=== PATIENT | male | born 1960 | race Caucasian/White ===

== ENCOUNTER 2019-09-19 13:29 | Inpatient (IN) | payer OTHER, SELFPAY ==
[2019-09-19] VITALS (26 sets, daily range): BP systolic 102–161; BP diastolic 67–109; PULSE 61–203; RESP 12–29; TEMP 36–36.4; O2SAT 95–100; BMI 37.3; BMI 38.9
--- NOTE | 2019-09-19 13:35 | NURSING ---
NO OLD EKGS
--- NOTE | 2019-09-19 13:50 | EKG12_ITS ---
Test Reason : SVT Blood Pressure : / mmHG Vent. Rate : 203 BPM Atrial Rate : 202 BPM P-R Int : 000 ms QRS Dur : 082 ms QT Int : 216 ms P-R-T Axes : 000 039 007 degrees QTc Int : 397 ms Supraventricular tachycardia Nonspecific ST and T wave abnormality Abnormal ECG Confirmed by NINA MACIAS, PUSHPA ([id number]), associate editor SHERLEY PABON ([id number]) on 09/23/2019 12:29:31 PM Referred By: DAVINA Confirmed By:PUSHPA WOOD MD
--- NOTE | 2019-09-19 13:51 | EKG12_ITS ---
Test Reason : SVT Blood Pressure : / mmHG Vent. Rate : 090 BPM Atrial Rate : 090 BPM P-R Int : 146 ms QRS Dur : 096 ms QT Int : 316 ms P-R-T Axes : 076 046 047 degrees QTc Int : 386 ms Sinus rhythm with Premature atrial complexes Biatrial enlargement Cannot rule out Inferior infarct , age undetermined Abnormal ECG Confirmed by NINA MACIAS, PUSHPA ([id number]), writer editor SHERLEY PABON ([id number]) on 09/23/2019 12:29:50 PM Referred By: DAVINA Confirmed By:PUSHPA WOOD MD
[2019-09-19] MEDS: Ipratropium/Albuterol Sulfate 3 ML AMPUL.NEB INHALATION (14:02)
[2019-09-19 14:06] LABS: Absolute Lymphocyte Count 5.52 X10^3/uL (0.83-4.51); Basophil# 0.07 X10^3/uL; Basophil% 0.4 % (0-1); Eosinophil# 0.05 X10^3/uL; Eosinophils% 0.3 % (0-5); Hematocrit 52.7 % (40-54); Hemoglobin 16.7 g/dL (13.0-16.5); Lymphocyte # 5.52 X10^3/ul (4.0); Mean Corp Hgb Conc 31.7 g/dL (32-36); Mean Corpuscular Hgb 29.4 pg (27.0-32.0); Mean Corpuscular Volume 92.8 fL (80-94); Mean Platelet Vol. 10.3 fl (6.2-12.0); Monocyte# 1.55 X10^3/uL; Monocyte% 9.5 % (0-10); NRBC Flagged by Analyzer 0 % (0-5); Neutrophil # 8.96 X10^3/uL (2.7-7.7); Neutrophil % 55.2 % (47-70); POSITIVE DIFFERENTIAL YES; Platelet Count 301 K/mm3 (150-450); RBC Distribution Width CV 13.2 % (11.6-14.6); RBC Distribution Width SD 44.6 fl (35.1-43.9); Red Blood Count 5.68 M/mm3 (4.6-6.2); White Blood Count 16.2 K/mm3 (4.4-11.0)
[2019-09-19 14:11] LABS: Differential Indicated SCAN CRITERIA MET
--- NOTE | 2019-09-19 14:13 | RAD_ITS ---
STUDY: X-RAY CHEST REASON FOR EXAM: Male, 59 years old. PALPITATIONS, COUGH TECHNIQUE: PA and lateral chest. COMPARISON: None. FINDINGS: There is a 1.3 cm nodule in the right lung base. There is a calcified granuloma in the right upper lobe. The lungs are otherwise clear. There is no demonstrated pleural abnormality. Normal size heart. Normal mediastinum and kaya. Normal visualized pulmonary arteries. Normal visualized aortic arch and descending thoracic aorta. Normal visualized thoracic spine. Normal visualized ribs, clavicles, and shoulders. There is no demonstrated abnormality of the visualized soft tissue structures of the upper abdomen. RAD/Chest PA and Lateral IMPRESSION: 1. No acute findings. 2. A 1.3 cm nodular density projected over the right lower lobe. Possible pulmonary nodule versus nipple shadow. Options for further evaluation include repeat PA view with nipple markers or CT of the chest. 3. Old granulomatous disease. Electronically Signed: Tamar Luna MD at 16:17 EST Tel , Service support ,
[2019-09-19 14:23] LABS: ALB/GLOB Ratio 0.9 RATIO (0.9-2.4); AST(SGOT) 55 U/L (15-37); Alanine Aminotransfer ALT/SGPT 135 U/L (16-61); Albumin, Serum 3.6 g/dL (3.2-5.0); Alkaline Phosphatase 99 U/L (45-117); Anion Gap 8 (5-15); BUN 18 mg/dL (7-18); BUN/Creat Ratio 14.6 RATIO (10-20); Calcium,Total 8.6 mg/dL (8.5-10.1); Chloride 101 mmol/L (98-107); Creatinine, Serum 1.23 mg/dL (0.70-1.30); EST Glomerular Filtration Rate 64 mL/min (>60); Est Glom Filt Rate - Afr Amer 78 mL/min (>60); Estimated Creatinine Clearance 72.73 ml/min; Globulin 4.1 g/dL (2.2-4.2); Glucose 106 mg/dL (74-106); Magnesium 2.5 mg/dL (1.6-2.6); Potassium 3.5 mmol/L (3.5-5.1); Protein, Total 7.7 g/dL (6.4-8.2); Sodium Level 137 mmol/L (136-145)
[2019-09-19 14:39] LABS: Differential Comment SCANNED; Reactive Lymphocyte 1+
[2019-09-19] MEDS: Adenosine 6 MG/2 ML Syringe IV (14:39)
--- NOTE | 2019-09-19 14:40 | ED.RN ---
PATIENT GIVEN 6 OF ADENOSINE. NO RESULTS. PATIENT REMAINS IN SVT. HEART RATE IN THE 200'S. [id number] PATIENT GIVEN 12 OF ADENOSINE. PATIENT NOW IN SINUS RHYTHM. WILL CONTINUE TO MONITOR.
[2019-09-19] MEDS: Adenosine 6 MG/2 ML Syringe 12 MG IV ×3 (14:42→18:06)
--- NOTE | 2019-09-19 14:47 | ED.RN ---
PATIENT BACK IN SVT WITH HEART RATE IN THE LOW 200'S. DR. GHOSH AWARE. WILL CONTINUE TO MONITOR.
[2019-09-19] MEDS: Metoprolol Tartrate 5 MG/5 ML Vial IV ×2 (15:07→16:15)
[2019-09-19] MEDS: Ceftriaxone 1 GM/50 ML BAG IV (15:28)
[2019-09-19] MEDS: Metoprolol(XL)Succ 25 MG Tablet PO (15:28)
[2019-09-19 15:43] LABS: Lactic Acid 1.7 mmol/L (0.4-1.9)
--- NOTE | 2019-09-19 16:04 | PCM.HP.STD ---
Problem List (1) SVT (supraventricular tachycardia) Status: Acute (2) Pneumonia Status: Acute Qualifiers: Pneumonia type: due to unspecified organism Laterality: right Lung location: lower lobe of lung Qualified Code(s): J18.9 - Pneumonia, unspecified organism (3) GERD (gastroesophageal reflux disease) Status: Chronic Qualifiers: Esophagitis presence: esophagitis presence not specified Qualified Code(s): K21.9 - Gastro-esophageal reflux disease without esophagitis (4) Obesity (BMI 30-39.9) Status: Chronic History of Present Illness Date of Admission: 09/19/19 Chief Complaint: Palpitations, dyspnea, cough The patient is a 59 y/o M w/ PMHx: GERD, Chronic palpitations for years usually resolving with breath-holding alternate methods but short-lived and primarily asymptomatic, Obesity w/ recent one-week history of ongoing productive cough, dyspnea, worse with exertion with no fevers but noted chills, not improving prompting him to present to urgent care where he was noted to have a heart rate in the 200s with referral to the ED for emergent evaluation with ED initial evaluation consistent with SVT which spontaneously converted initially. Patient had prolonged ED stay requiring several doses of adenosine, metoprolol without market benefit with eventual transition to amiodarone bolus and drip per discussion with cardiology. During the entirety of patient's admission in the emergency room he denied significant symptoms from his ongoing SVT, only a fluttering but no chest pain, chest pressure, headedness or dizziness or worsened dyspnea. Work-up in the ED included CBC w/ WBC 16.2, Hgb 16.7, Plt 301 with L shift, CMP w/ T Bili 1.40, AST/ALT 55/135, trop < 0.015, Bld Cx x 2, CXR w/ developing RLL PNA, Bld Cx x 2. In the ED patient administered serial rounds adenosine, metoprolol, azithromycin, rocephin, albuterol and duoneb therapies with eventual amiodarone bolus and drip ordered. Of note, prior to transition to the ICU, patient w/ episode hypotension w/ SBP in the 70s prior to the amiodarone with repeat BP 92/70, ordered 1L NS prior to ICU transition. Dr. Pelayo consulted and following patient. Past Medical History Past Medical History (Chronic Problems): Chronic Problems GERD (gastroesophageal reflux disease) (Chronic) Obesity (BMI 30-39.9) (Chronic) Allergies No Known Allergies Allergy (Verified 09/19/19 13:59) Home Medications: Ambulatory Orders Medication Instructions Recorded Gluc Spring/Chondro Spring A/Vit C/Mn 1 cap PO DAILY 09/19/19 [Glucosamine-Chondroitin Cap] Omeprazole Magnesium [Prilosec Otc] 20 mg PO DAILY 09/19/19 Turmeric Root Extract [Turmeric 500 mg PO DAILY 09/19/19 Curcumin] Surgical History: - - Umbilical hernia repair, tonsillectomy. Psychiatric History: No pertinent psych hx Lives: Spouse/ Significant Other Smoking Status: Never smoker Tobacco Use: Non-smoker Alcohol: Occasional Drugs: None - *Family History Maternal History Items: - - Mother with history of heart disease, CHF. Paternal History Items: - - Father with history of prostate cancer. Review of Systems Constitutional: Reports: Anorexia, Chills, Malaise, Weakness, Fatigue. Denies: Fever, Weight Change HEENT: Denies: Head Aches, Sinus Congestion, Sinus Drainage Cardiovascular: Reports: Palpitations. Denies: Chest Pain, Chest Pressure, Chest Tightness, Heaviness, Light Headedness, Syncope Respiratory: Reports: Cough, Shortness of Breath, Shortness of breath at rest, Shortness of breath upon exertion, Sputum production Gastrointestinal: Reports: Nausea. Denies: Abdominal Pain, Vomiting Genitourinary: Denies: Dysuria Musculoskeletal: Reports: Joint Pain. Denies: Joint Tenderness Skin: Denies: Rash, Wounds Neurological: Denies: Numbness, Tingling, Focal weakness Psychiatric: Denies: Anxiety, Depression, Homicidal Ideations, Suicidal Ideations Hematologic/ Lymphatic: Denies: Easy Bruising, Easy Bleeding VTE Information - Inpt Only VTE Present on Admission: No VTE Mechan Device Prophylaxis: SCD's VTE Pharm Prophylaxis ordered?: Yes Patient Problems: Active and Suspected Problems SVT (supraventricular tachycardia) (Acute) Pneumonia (Acute) Subjective: Seated upright in the ED bed, no acute distress, denies any chest discomfort, ongoing heart rate in the 170s. Objective: Physical Examination: General: awake, alert, oriented x 3 and cooperative, seated upright in the ED bed, no acute distress. Skin: normal color, turgor, no icterus, cyanosis. HEENT: AT/NC, EOMI, PERRLA, dry MM, no carotid bruits or JVD noted. Lungs: Diminished breath sounds bilaterally, greater bilateral bases, right greater than left, mild rhonchi, no wheezing or rales. Heart: Irregular irregular; no gallop, rub audible. Abdomen: soft, obese, NTTP, ND, normal BS, no HSM; however, habitus makes examination difficult. Extremities: no cyanosis, clubbing, or edema. Neurological: patient awake, alert, oriented x 3; cognitive function intact; pupils equally reactive to light and accomodation; cranial nerves II-XII grossly normal, moving all 4 extremities, no focal deficits, strength moderately global decrease secondary to acute presentation. Psychiatric: affect appears fatigued, no acute evidence of depressive or anxiety feelings. - Physical Exam Vitals/I&O's: Vital Signs Temp Pulse Resp BP Pulse Ox 97 F L 183 H 18 110/88 H 97 09/19/19 13:29 09/19/19 16:00 09/19/19 16:00 09/19/19 16:00 09/19/19 16:00 Oxygen Delivery Method Room Air Weight: 275 lb Body Mass Index (BMI) 37.3 Intake and Output for Last 24 Hours 09/17/19 09/18/19 09/19/19 23:59 23:59 23:59 Intake Total 50 / 50 Balance 50 / 50 Laboratory Results 09/19/19 13:51: WBC 16.2 H, RBC 5.68, Hgb 16.7 H, Hct 52.7, MCV 92.8, MCH 29.4, MCHC 31.7 L, RDW Std Deviation 44.6 H, RDW Coeff of Kristen 13.2, Plt Count 301, MPV 10.3, Immature Gran % (Auto) 0.600, Neut % (Auto) 55.2, Lymph % (Auto) 34.0, [place] % (Auto) 9.5, Eos % (Auto) 0.3, Baso % (Auto) 0.4, Absolute Neuts (auto) 9.0 H, Absolute Lymphs (auto) 5.52 H, Nucleated RBC % 0, Differential Comment SCANNED, Diff Path Review May foll, Reactive Lymphocytes 1+ 09/19/19 13:51: Sodium 137, Potassium 3.5, Chloride 101, Carbon Dioxide 28.0, Anion Gap 8, BUN 18, Creatinine 1.23, Estim Creat Clear Calc 72.73, Est GFR (MDRD) Af Amer 78, Est GFR (MDRD) Non-Af 64, BUN/Creatinine Ratio 14.6, Glucose 106, Calcium 8.6, Magnesium 2.5, Total Bilirubin 1.40 H, AST 55 H, ALT 135 H, Alkaline Phosphatase 99, Troponin I < 0.015, Total Protein 7.7, Albumin 3.6, Globulin 4.1, Albumin/Globulin Ratio 0.9 09/19/19 15:06: Lactic Acid 1.7 Assessment/Plan All Active Problems SVT (supraventricular tachycardia) (Acute) Pneumonia (Acute) The patient is a 59 y/o M w/ PMHx: GERD, Chronic palpitations for years usually resolving with breath-holding alternate methods but short-lived and primarily asymptomatic, Obesity w/ recent one-week history of ongoing productive cough, dyspnea, worse with exertion with no fevers but noted chills, not improving prompting him to present to urgent care where he was noted to have a heart rate in the 200s with referral to the ED for emergent evaluation with ED initial evaluation consistent with SVT which spontaneously converted initially. 1. Persistent SVT: Likely secondary to #2, prior history frequent palpitations, usually limited, will admit to the ICU, maintain on recently initiated amiodarone bolus and drip, Cardiology consulted and following, obtain ECHO, obtain mag, obtain TSH, continue treatment as noted #2. 2. Community Acquired Pneumonia: Acute presentation contributing to #1. Will maintain on oxygen with wean as tolerated to room air, PRN albuterol, defer scheduled DuoNeb therapies given current heart rate, maintain on IV Rocephin and Azithromycin, HOB, IS parameters w/ pending sputum cultures, respiratory viral panel and urine antigens. Bld cx x 2 obtained in the ED. 3. Elevated LFTs: Unclear specific etiology but from discussions suspect patient may have heavy weekend drinking, will obtain hepatitis panel, obtain liver ultrasound, repeat CMP in a.m. 4. Obesity: Weight loss and lifestyle changes encouraged, nutrition consulted. 5. GERD: Maintained on famotidine. 6. DVT prophylaxis: SCDs, Lovenox. Code Visit Inpatient E&M: [id number] Init Hosp L3
--- NOTE | 2019-09-19 16:56 | NURSING ---
[id number] WHITE SVT, PNA
--- NOTE | 2019-09-19 17:02 | NURSING ---
MED SURG OBS PESCI BRONCHIOLITIS
--- NOTE | 2019-09-19 17:09 | ED.DCSUM_ITS ---
History of Present Illness Chief Complaint: Palpitations Informant: Patient, Family Narrative: For the past week the patient states he has had a cough and congestion. But he has been experiencing racing heart. States symptoms usually are being felt in his throat and states that [place] of the barn yesterday he was very dyspneic and sweaty. He has had problems with a sensation that his heart is been racing in the past with been very short-lived he went saw his doctor Once upon a time for it was told it was anxiety and nothing more was worked up. Past Medical History - Allergies and Home Meds Allergies/Adverse Reactions: Allergies No Known Allergies Allergy (Verified 09/19/19 13:59) Smoking Status: Former smoker Review of Systems General: Reports: Malaise. Denies: Chills, Fever, Sweats Eyes: Denies: Visual changes - bilaterally, Diplopia ENT: Denies: Rhinorrhea, Sore throat Cardiovascular: Reports: Heart racing. Denies: Chest pain, Palpitations Respiratory: Reports: Dyspnea, Cough. Denies: Dyspnea on exertion Gastrointestinal: Denies: Abdominal pain, Nausea, Vomiting, Diarrhea, Melena, Hematochezia Genitourinary: Denies: Dysuria, Hematuria, Frequency Musculoskeletal: Denies: Back pain, Extremity Pain Skin: Reports: - - Diaphoresis. Denies: Rash, Wounds Neurological: Denies: Headache, Weakness, Numbness Physical Exam Vital Signs/Narrative: Vital Signs Temp Pulse Resp BP Pulse Ox 09/19/19 16:00 183 H 18 110/88 H 97 09/19/19 15:30 181 H 16 105/82 H 97 09/19/19 14:53 199 H 18 161/109 H 96 09/19/19 14:03 85 12 09/19/19 13:39 82 18 151/108 H 99 09/19/19 13:30 202 H 18 99 09/19/19 13:29 97 F L 203 H 24 H 143/108 H 96 Inital Vital Signs reviewed: Yes General: Well nourished, Well developed, No Acute Distress Head: Normocephalic, Atraumatic Eyes: Perrl, EOMI ENT: Moist mucous membranes, No rhinorrhea Neck: Supple, Nontender Cardiovascular: Regular rate, No murmurs, Tachycardia Respiratory: No distress, Chest nontender, Rhonchi, Wheezing Abdomen: Soft, Nontender, Nondistended, Normal bowel sounds Back: Nontender, Normal Inspection Extremities: Nontender, No edema Skin: Normal color, No rash Neurological: Alert, Oriented x3, Cranial nerves II-XII grossly intact, Normal Strength, Normal Sensation Psychological: Normal affect, Normal Mood Diagnostic/Tx/Re-eval - EKG Initial EKG Interpretation: SVT - Supraventricular tachycardia with a rate of 203 Follow-up EKG Interpretation: Sinus Rhythm - Sinus rhythm with biatrial enlargement at a rate of 90. - Medical Decision Making Basic labs showed a white count of 16. Concerned about a possible developing infiltrate in the right lower lobe. Otherwise his electrolytes and troponin look okay. Patient self converted prior to my examination. However he went back into SVT and received 6 and then 12 mg of adenosine. This temporarily broke his SVT but about 1 to 2 minutes later he went back into it. I spoke with Dr. Pelayo is on-call for cardiology. He recommended a trial of beta- sheyla. He was given both oral and IV beta-sheyla with heart rates decreasing to the 170 and 180 range. After a period of time adenosine was tried again with the break to sinus rhythm only lasting a couple seconds. I again spoke with Dr. Pelayo and we will start him on amiodarone bolus and infusion. Plan is admission into the ICU. Prior to him leaving the department and getting the amiodarone the patient became hypotensive. He is going to be receiving a fluid bolus. - Critical Care Time Critical care time (excluding procedures): 30-74 minutes - 35 min ED Disposition - Plan for ED Patient: Disposition: Acute Care Hospital [facility] Diagnosis: SVT (supraventricular tachycardia), Pneumonia
[2019-09-19] MEDS: 0.9% Normal Saline 1,000 ML 999 ML IV (17:21)
--- NOTE | 2019-09-19 17:39 | ECHOCS_ITS ---
Reason For Study: Arrhythmia Procedure This was a 2D Doppler, Color Flow transthoracic echocardiogram. The study was technically difficult. Contrast injection was performed. Exam performed portable in ICU/CCU. Left Ventricle Normal LV size. Left ventricular systolic function is normal. The estimated ejection fraction is 55 %. No evidence for diastolic dysfunction. No regional wall motion abnormalities noted. Right Ventricle Normal RV size. Normal systolic function. Atria The left atrium is moderately enlarged. The right atrium is mildly enlarged. No doppler evidence for ASD. Mitral Valve There is no mitral annular calcification. Normal mitral valve. Moderate (2+) mitral valve insufficiency. Tricuspid Valve Normal tricuspid valve. Mild to moderate (1-2+) tricuspid valve insufficiency. Right ventricular systolic pressure estimated to be 30 mmHg. Aortic Valve Trisinus/trileaflet aortic valve. Normal aortic valve. Pulmonic Valve The pulmonic valve is not well visualized. Trivial pulmonic valve insufficiency. Great Vessels Normal sized aortic root. Pericardium/Pleural No pericardial effusion. Medication Diluted definity 4ml given slow IV push to enhance endocardial definition. MMode/2D Measurements & Calculations LVIDd: 4.3 cm IVSd: 1.2 cm Ao root diam: 3.1 cm LVIDs: 3.5 cm LVPWd: 1.2 cm RVDd: 3.5 cm FS: 18.5 % LAV(MOD-bp): 76.0 ml LA A4 area: 23.9 cm2 LA dimension(2D): 4.6 cm LAV(MOD-bp) Indexed: 30.7 ml/m2 LAV(MOD-sp2): 72.7 ml LAV(MOD-sp4): 72.6 ml RA A4 area: 23.4 cm2 Doppler Measurements & Calculations MV E max estevan: 77.2 cm/sec Lat Peak E' [place]: 8.5 cm/sec Med Peak E' [place]: 5.8 cm/sec MV A max estevan: 30.5 cm/sec E/E' lat: 9.1 E/E' med: 13.4 MV E/A: 2.5 Ao V2 max: 117.6 cm/sec LV V1 max: 91.1 cm/sec PA V2 max: 67.8 cm/sec Ao max P.5 mmHg LV V1 max P.3 mmHg TR max estevan: 259.0 cm/sec TR max P.9 mmHg Interpretation Summary The study was technically difficult. Contrast injection was performed. Left ventricular systolic function is normal. The estimated ejection fraction is 55 %. The left atrium is moderately enlarged. The right atrium is mildly enlarged. Moderate (2+) mitral valve insufficiency. Mild to moderate (1-2+) tricuspid valve insufficiency. Trivial pulmonic valve insufficiency. Right ventricular systolic pressure estimated to be 30 mmHg. No evidence for diastolic dysfunction. Ordering Physician: Torie Wiley Performed By: Destiney Asencio RDCS
--- NOTE | 2019-09-19 17:39 | US_ITS ---
STUDY: ABDOMINAL ULTRASOUND - RIGHT UPPER QUADRANT REASON FOR VISIT: Male, 59 years old ELEV LFTS TECHNIQUE: Ultrasound evaluation of the right upper quadrant was performed with real-time and static landon-scale imaging. TECHNICAL QUALITY: Limited. COMPARISON: None. FINDINGS: Liver: The liver measures 21.0 cm. There is increased echogenicity consistent with fatty infiltration. The bile ducts are within normal limits. There is hepatic color flow. The direction of portal flow is hepatopetal. There is no demonstrated mass lesion. Gallbladder: Normal distended gallbladder. The gallbladder wall measures 3 mm. There is a negative sonographic Hanson''s sign. There is no pericholecystic fluid. There are no gallstones. Common Bile Duct (C.B.D.): The common bile duct measures 5 mm. Pancreas: The pancreatic head and tail are poorly visualized. There is normal echogenicity of the pancreas. There is no demonstrated pancreatic mass or cyst. There is mild ductal dilatation measuring up to 3 mm. Right Kidney: Normal size of the right kidney. The right kidney measures 13.7 x 5.9 x 7.0 cm. Normal renal cortex. The right cortex measures 1.3 cm. There is prominence of the right renal pyramids. There is no demonstrated renal mass or cyst. There is no right hydronephrosis. US/Liver IMPRESSION: 1. Mild hepatomegaly. 2. Echogenic liver suggestive of steatosis. 3. The pancreatic head and tail were not well visualized. 4. Prominent right renal periods. Electronically Signed: Naeem Sweeney MD at 21:33 EST , Service support ,
[2019-09-19] MEDS: 0.9% Saline Lock 10 ML Syringe IV (17:52)
[2019-09-19] MEDS: 0.9% Normal Saline 1,000 ML 125 ML IV (18:00)
--- NOTE | 2019-09-19 18:16 | CON.PCM_ITS ---
Problem List (1) SVT (supraventricular tachycardia) Status: Acute (2) Pneumonia Status: Acute Qualifiers: Pneumonia type: due to unspecified organism Laterality: right Lung location: lower lobe of lung Qualified Code(s): J18.9 - Pneumonia, unspecified organism (3) GERD (gastroesophageal reflux disease) Status: Chronic Qualifiers: Esophagitis presence: esophagitis presence not specified Qualified Code(s): K21.9 - Gastro-esophageal reflux disease without esophagitis (4) Obesity (BMI 30-39.9) Status: Chronic Reason for Consult Date of Consultation: 09/19/19 History of Present Illness: The patient is a 59 year old white male who denies any diagnosed past cardiovascular history who is referred for evaluation of PSVT in the setting of concerns of tracheobronchitis/pneumonia superimposed upon history of GERD and obesity. He states for at least 30 years he has been told that sensations that he feels, palpitations/rapid heart rate, have been related to anxiety . He does not recall ever going through any type of cardiovascular diagnostic studies and/or therapeutic intervention. He states he has episodes of his palpitations and rapid heart rate randomly. He usually can tell when they start as he still has a sensation in his neck that then proceeds to his chest and he can actually watch his heartbeat in his chest go fast. He notes these episodes can last anywhere from seconds to minutes and and potentially up to 2 hours in duration. He denies any episodes of syncope. 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 He notes recently he has not felt well. He states that he has had episodes where he has been somewhat diaphoretic. He did not check his temperature. He notes he has had a cough with some sputum production. He also notes his appetite has been down. He presented to the urgent care for further evaluation. He states there were concerns of pneumonia but also on examination of a rapid heart rate. He was referred to the [facility] emergency department. There he was being evaluated for pneumonia and at the same time was found to have what appeared to be PSVT. He was having episodes where his heart rate would spontaneously return to sinus rhythm. However, as his episodes persisted he did receive additional medical therapy with IV adenosine 12 mg x 2 separate occasions. With both of those episodes he had subsequent abrupt termination with evidence of underlying ventricular ectopy/PVCs and then returned to sinus rhythm. However his sinus rhythm did not persist for long and he returned back into a PSVT. He was treated with additional medical therapy with IV Lopressor 5 mg x 2 and oral metoprolol succinate 25 mg p.o. x1. He did not have return to sinus rhythm. He was then placed on additional antiarrhythmic therapy with IV amiodarone. He was then transferred to the ICU for further evaluation and care. Status post his initial IV amiodarone bolus he received an additional adenosine 12 mg x 1 with subsequent spontaneous conversion to sinus rhythm with PVCs and then a return to PSVT at a rate of approximately 150 bpm. His initial troponin I level was negative. His WBC was elevated. His ECG demonstrated supraventricular tachycardia with nonspecific ST/T wave change. His ECG in sinus rhythm demonstrated sinus rhythm with the appearance of biatrial enlargement. There were no other acute ECG changes. He has denied any orthopnea or PND or peripheral pitting edema. He states that he has had no near syncope or syncope. He has had episodes in the past where he has been transiently lightheaded. [] Past Medical History Allergies/Adverse Reactions: Allergies No Known Allergies Allergy (Verified 09/19/19 13:59) Home Medications: Ambulatory Orders Medication Instructions Recorded Gluc Spring/Chondro Spring A/Vit C/Mn 1 cap PO DAILY 09/19/19 [Glucosamine-Chondroitin Cap] Omeprazole Magnesium [Prilosec Otc] 20 mg PO DAILY 09/19/19 Turmeric Root Extract [Turmeric 500 mg PO DAILY 09/19/19 Curcumin] Past Medical History (Chronic Problems): Chronic Problems GERD (gastroesophageal reflux disease) (Chronic) Obesity (BMI 30-39.9) (Chronic) Surgical History: - - Umbilical hernia repair, tonsillectomy. Psychiatric History: No pertinent psych hx - *Family History Maternal History Items: - - Mother with history of heart disease, CHF. Paternal History Items: - - Father with history of prostate cancer. Lives: Spouse/ Significant Other Smoking Status: Never smoker Tobacco Use: Non-smoker Alcohol: Occasional Drugs: None Review of Systems - Review of Systems General: Reports: Decreased Appetite. Denies: Fever, Fatigue, Night Sweats HEENT: Reports: Sore Throat Cardiovascular: Reports: Palpitations, Lightheadedness. Denies: Chest Discomfort, Shortness of Breath, Orthopnea, PND, Peripheral Edema, Dizziness, Near Syncope, Syncope Respiratory: Reports: Cough, Sputum Production. Denies: Hemoptysis Gastrointestinal: Denies: Hematemesis, Hematochezia, Melena Genitourinary: Denies: Dysuria, Hematuria Skin: Denies: Rash Subjectve: This is a 59-year-old obese white male who appears resting comfortably at the moment in no acute distress. Objective: Vital Signs Temp Pulse Resp BP Pulse Ox 97.6 F L 154 H 18 102/81 H 96 09/19/19 17:24 09/19/19 17:26 09/19/19 17:26 09/19/19 17:26 09/19/19 17:26 Oxygen Delivery Method Room Air Weight: 287 lb 11.252 oz Body Mass Index (BMI) 38.9 Intake and Output for Last 24 Hours 09/17/19 09/18/19 09/19/19 23:59 23:59 23:59 Intake Total 408 / 408 Balance 408 / 408 General: Awake, Alert, Oriented x 3, Cooperative, No Acute Distress HEENT: Atraumatic, Normocephalic, PERRL, EOMI, Sclera Non Icteric Oral: Moist Mucosa Neck: Supple, Good ROM, No JVD Lungs: Clear to auscultation Cardiovascular: Regular Rhythm, Normal S1, Normal S2 Vascular: No Carotid Bruits Abdomen: Bowel Sounds Present, Soft, Non Tender Extremities: No Cyanosis, No Clubbing, No edema Neurological: No Focal Motor or Sensory Deficit Psych/Mental Status: Appropriate 09/19/19 13:51: WBC 16.2 H, RBC 5.68, Hgb 16.7 H, Hct 52.7, MCV 92.8, MCH 29.4, MCHC 31.7 L, Plt Count 301, MPV 10.3, Immature Gran % (Auto) 0.600, Neut % (Auto) 55.2, Lymph % (Auto) 34.0, [place] % (Auto) 9.5, Eos % (Auto) 0.3, Baso % ( Auto) 0.4, Absolute Neuts (auto) 9.0 H, Nucleated RBC % 0 09/19/19 13:51: Sodium 137, Potassium 3.5, Chloride 101, Carbon Dioxide 28.0, Anion Gap 8, BUN 18, Creatinine 1.23, Est GFR (MDRD) Af Amer 78, Est GFR (MDRD) Non-Af 64, BUN/Creatinine Ratio 14.6, Glucose 106, Calcium 8.6, Magnesium 2.5, Total Bilirubin 1.40 H, Troponin I < 0.015 09/19/19 15:06: Lactic Acid 1.7 Rhythm: As noted above EKG: As noted above CXR: preliminary evaluation: No acute cardiopulmonary disease process appr eciated; please see official report Assessment/Plan 1. PSVT The patient does appear to have underlying PSVT. He states that his symptoms are similar to symptoms he has had off and on for many years. He notes at times he can tilt his head back, take a deep breath, and break his episodes. 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 It is unclear at the moment whether his episode today is coincidental with his underlying pulmonary disease related issues or potentially being brought out by his pulmonary disease related issues. At the moment he is in the ICU based upon his cardiac dysrhythmia. He is being monitored. His laboratory studies are being evaluated. He is continuing medical therapy. At this time he will be placed on additional rate limiting therapy with IV diltiazem in the hopes of controlling his rate and allowing him a better opportunity to return to sinus rhythm. He is continuing IV amiodarone for the time being. Ideally over time he should be considered for EP evaluation for EPS/RFA. In the interim he will be asked to have further cardiovascular evaluation with a transthoracic echocardiogram to evaluate his atrial size and ventricular size, wall motion, and systolic function. Hopefully this can be performed in sinus rhythm. In the meantime he will also continue his pulmonary evaluation and care. 2. Pneumonia He is being evaluated by internal medicine for concerns of underlying pneumonia. He has received IV antibiotics. 3. GERD He will continue evaluation care per internal medicine as deemed appropriate. 4. Obesity Unfortunately he is overweight/obese. He has been counseled on the need to try and bring his weight under better control. Comment: The patient's case has been discussed and reviewed with the [facility] emergency department staff. This note was generated using a voice recognition system and there may be incorrect words, spelling or punctuation that were not noted when reviewing the office note prior to saving.
[2019-09-19] MEDS: dilTIAZem 25 MG/5 ML Vial 20 MG IV BOLUS (18:42)
[2019-09-19 19:04] LABS: Magnesium 2.5 mg/dL (1.6-2.6); Thyroid Stim Hormone (TSH) 2.49 uIU/mL (0.358-3.74)
[2019-09-19] MEDS: guaiFENesin 1,200 MG Tablet 1200 MG PO (21:10)
[2019-09-20] VITALS (36 sets, daily range): BP systolic 104–172; BP diastolic 75–106; PULSE 49–151; RESP 15–26; TEMP 36.2–36.7; O2SAT 93–966
[2019-09-20] MEDS: 0.9% Normal Saline 1,000 ML 125 ML IV ×2 (01:10→09:42)
[2019-09-20 04:02] LABS: Absolute Lymphocyte Count 3.74 X10^3/uL (0.83-4.51); Basophil# 0.05 X10^3/uL; Basophil% 0.4 % (0-1); Eosinophil# 0.04 X10^3/uL; Eosinophils% 0.3 % (0-5); Hemoglobin 13.6 g/dL (13.0-16.5); Lymphocyte # 3.74 X10^3/ul (4.0); Lymphocyte % 31.4 % (19-41); Mean Corp Hgb Conc 32.4 g/dL (32-36); Mean Corpuscular Hgb 29.9 pg (27.0-32.0); Mean Corpuscular Volume 92.3 fL (80-94); Monocyte# 0.97 X10^3/uL; Monocyte% 8.2 % (0-10); NRBC Flagged by Analyzer 0 % (0-5); Neutrophil # 7.04 X10^3/uL (2.7-7.7); Neutrophil % 59.2 % (47-70); Platelet Count 247 K/mm3 (150-450); RBC Distribution Width CV 13.4 % (11.6-14.6); RBC Distribution Width SD 45.4 fl (35.1-43.9); Red Blood Count 4.55 M/mm3 (4.6-6.2); White Blood Count 11.9 K/mm3 (4.4-11.0)
[2019-09-20 04:32] LABS: ALB/GLOB Ratio 0.9 RATIO (0.9-2.4); AST(SGOT) 45 U/L (15-37); Alanine Aminotransfer ALT/SGPT 119 U/L (16-61); Alkaline Phosphatase 86 U/L (45-117); Anion Gap 4 (5-15); BUN 17 mg/dL (7-18); BUN/Creat Ratio 17.1 RATIO (10-20); Calcium,Total 7.7 mg/dL (8.5-10.1); Chloride 107 mmol/L (98-107); Cholesterol 116 mg/dL (200); EST Glomerular Filtration Rate 82 mL/min (>60); Est Glom Filt Rate - Afr Amer 99 mL/min (>60); Estimated Creatinine Clearance 89.46 ml/min; Globulin 3.2 g/dL (2.2-4.2); Glucose 92 mg/dL (74-106); High Density Lipoprotein 30 mg/dL; Potassium 4.1 mmol/L (3.5-5.1); Protein, Total 6.2 g/dL (6.4-8.2); Sodium Level 139 mmol/L (136-145); Triglycerides 81 mg/dL; Very Low Density Lipoprotein 16 mg/dL (5-40)
--- NOTE | 2019-09-20 05:55 | RAD_ITS ---
STUDY: X-RAY CHEST REASON FOR EXAM: Male, 59 years old. Dyspnea. TECHNIQUE: AP upright portable view. COMPARISON: 09/19/2019. FINDINGS: Calcified granuloma in the right upper lobe is unchanged. No suspicious infiltrates. There is no demonstrated pleural abnormality. Normal size heart. Normal mediastinum and kaya. Normal visualized pulmonary arteries. Normal visualized aortic arch and descending thoracic aorta. Normal visualized thoracic spine. Normal visualized ribs, clavicles, and shoulders. There is no demonstrated abnormality of the visualized soft tissue structures of the upper abdomen. RAD/Chest 1 View (Portable) IMPRESSION: 1. No acute cardiopulmonary pathology. 2. No significant interval change when compared to 09/19/2019. Electronically Signed: Severo Díaz MD at 10:18 EST , Service support ,
--- NOTE | 2019-09-20 05:55 | EKG12_ITS ---
Test Reason : AM EKG Blood Pressure : / mmHG Vent. Rate : 052 BPM Atrial Rate : 052 BPM P-R Int : 202 ms QRS Dur : 100 ms QT Int : 492 ms P-R-T Axes : 063 047 043 degrees QTc Int : 457 ms Sinus bradycardia Otherwise normal ECG When compared with ECG of 19-SEP-2019 13:36, MANUAL COMPARISON REQUIRED, DATA IS UNCONFIRMED Confirmed by NINA MACIAS, PUSHPA ([id number]), mapping editor SHERLEY PABON ([id number]) on 09/24/2019 9:12:45 AM Referred By: TRISTON ADHIKARI Confirmed By:PUSHPA WOOD MD
--- NOTE | 2019-09-20 08:10 | PCM.PN.CARD ---
Subjectve: The patient is awake and alert. He states he feels better overall compared to yesterday evening. He has not noted ongoing palpitations or rapid heart rates. He has had no other chest discomfort. He states he feels that his cough has lessened. Objective: Vital Signs Temp Pulse Resp BP Pulse Ox 97.9 F 56 L 15 145/106 H 96 09/20/19 04:00 09/20/19 08:00 09/20/19 08:00 09/20/19 08:00 09/20/19 08:00 Oxygen Delivery Method Room Air Weight: 284 lb 9.868 oz Body Mass Index (BMI) 38.9 Intake and Output for Last 24 Hours 09/18/19 09/19/19 09/20/19 23:59 23:59 23:59 Intake Total 2279.33 / 3029.33 1724.47 / 1724.47 Output Total 200 / 200 150 / 150 Balance 2079.33 / 2829.33 1574.47 / 1574.47 General: Awake, Alert, Oriented x 3, Cooperative, No Acute Distress, Obese HEENT: Atraumatic, Normocephalic, PERRL, EOMI, Sclera Non Icteric Oral: Moist Mucosa Neck: Supple, Good ROM, No JVD Lungs: Clear to auscultation Cardiovascular: Regular Rhythm, Normal S1, Normal S2 Vascular: No Carotid Bruits Abdomen: Bowel Sounds Present, Soft, Non Tender Extremities: No edema Neurological: No Focal Motor or Sensory Deficit Psych/Mental Status: Appropriate 09/19/19 13:51: WBC 16.2 H, RBC 5.68, Hgb 16.7 H, Hct 52.7, MCV 92.8, MCH 29.4, MCHC 31.7 L, Plt Count 301, MPV 10.3, Immature Gran % (Auto) 0.600, Neut % (Auto) 55.2, Lymph % (Auto) 34.0, [place] % (Auto) 9.5, Eos % (Auto) 0.3, Baso % (Auto) 0.4, Absolute Neuts (auto) 9.0 H, Nucleated RBC % 0 09/19/19 13:51: Sodium 137, Potassium 3.5, Chloride 101, Carbon Dioxide 28.0, Anion Gap 8, BUN 18, Creatinine 1.23, Est GFR (MDRD) Af Amer 78, Est GFR (MDRD) Non-Af 64, BUN/Creatinine Ratio 14.6, Glucose 106, Calcium 8.6, Magnesium 2.5, Total Bilirubin 1.40 H, Troponin I < 0.015 09/19/19 15:06: Lactic Acid 1.7 09/19/19 18:15: Magnesium 2.5 09/19/19 18:15: Troponin I 0.017 09/19/19 21:10: Troponin I 0.021 09/19/19 23:45: Troponin I 0.031 09/20/19 03:50: WBC 11.9 H, RBC 4.55 L, Hgb 13.6, Hct 42.0, MCV 92.3, MCH 29.9, MCHC 32.4, Plt Count 247, MPV 10.0, Immature Gran % (Auto) 0.500, Neut % (Auto) 59.2, Lymph % (Auto) 31.4, [place] % (Auto) 8.2, Eos % (Auto) 0.3, Baso % (Auto) 0.4, Absolute Neuts (auto) 7.0, Nucleated RBC % 0 09/20/19 03:50: Sodium 139, Potassium 4.1, Chloride 107, Carbon Dioxide 28.0, Anion Gap 4 L, BUN 17, Creatinine 1.00, Est GFR (MDRD) Af Amer 99, Est GFR (MDRD) Non-Af 82, BUN/Creatinine Ratio 17.1, Glucose 92, Calcium 7.7 L, Total Bilirubin 1.10 H, Triglycerides 81, Cholesterol 116, LDL Cholesterol 70, VLDL Cholesterol 16, HDL Cholesterol 30 L Rhythm: Sinus rhythm EKG: Sinus rhythm; no acute ECG changes ECHO: Pending Medical Necessity - Tobacco Use Smoking Status: Never smoker Tobacco Use: Non-smoker Assessment/Plan 1. PSVT The patient does appear to have underlying PSVT. He states that his symptoms are similar to symptoms he has had off and on for many years. He notes at times he can tilt his head back, take a deep breath, and break his episodes. 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 It is unclear at the moment whether his episode today is coincidental with his underlying pulmonary disease related issues or potentially being brought out by his pulmonary disease related issues. As previously noted the patient was treated with a combination of medications. Status post initiation of IV diltiazem bolus the patient had return to sinus rhythm. He was subsequently placed on IV diltiazem continuous infusion and remained in sinus rhythm. This was placed on hold secondary to concerns of bradycardia. At the present time the patient will continue to be monitored. He will continue oral diltiazem therapy as tolerated as this appeared to assist with regaining and maintaining sinus rhythm. His IV amiodarone will be placed on hold. He is pending further evaluation with a transthoracic echocardiogram. Eventually he should be recommended for EP consultation for EPS/RFA. 2. Pneumonia He is being evaluated by internal medicine for concerns of underlying pneumonia. He has received IV antibiotics. 3. GERD He will continue evaluation care per internal medicine as deemed appropriate. 4. Obesity Unfortunately he is overweight/obese. He has been counseled on the need to try and bring his weight under better control. Comment: The patient's case has been discussed and reviewed with Dr. Flowers. This note was generated using a voice recognition system and there may be incorrect words, spelling or punctuation that were not noted when reviewing the office note prior to saving.
--- NOTE | 2019-09-20 08:48 | PCM.PN.HOSP ---
Patient Problems: Active and Suspected Problems SVT (supraventricular tachycardia) (Acute) Pneumonia (Acute) Reason for Visit: Currently patient sinus rhythm at heart rate of low 50s. Patient admitted with PSVT, heart rate more than 200s. Patient was given metoprolol IV 5 mg x 2, Cardizem 20 mg IV and then started on amiodarone drip. Patient seen by internet webmaster. On telemetry normal sinus rhythm. Patient has history of palpitation for about 30 years but has never been evaluated. He saw his doctor last time about 2 years ago and palpitation was attributed to anxiety. Patient also has cough, shortness of breath sore throat for 1 week 09/15 2019. Had fever and chills on 09/16. Vitals/I&O's: Vital Signs Temp Pulse Resp BP Pulse Ox 97.9 F 56 L 15 145/106 H 96 09/20/19 04:00 09/20/19 08:00 09/20/19 08:00 09/20/19 08:00 09/20/19 08:00 Oxygen Delivery Method Room Air Weight: 284 lb 9.868 oz Body Mass Index (BMI) 38.9 Intake and Output for Last 24 Hours 09/18/19 09/19/19 09/20/19 23:59 23:59 23:59 Intake Total 2279.33 / 3029.33 1724.47 / 1724.47 Output Total 200 / 200 150 / 150 Balance 2079.33 / 2829.33 1574.47 / 1574.47 General: Alert, Oriented x3, Cooperative HEENT: Atraumatic, PERRLA, EOMI, Normocephalic Oral: No Gingival or Mucosal Lesions/ Ulcerations, Dry Mucosa Neck: Supple, No JVD, Negative Carotid Bruits Lungs: No wheeze, No rales, Diminished - Air entry is diminished in bilateral lung bases; right more than left., Rhonchi Cardiovascular: Regular rate, Regular Rhythm, Normal S1, Normal S2, No murmurs Abdomen: Bowel Sounds Present, Soft, Non Tender, Non-Distended Extremities: No edema, Capillary Refill Less than 3 Seconds Skin: No rashes, No breakdown Musculoskeletal: No Tenderness to Palpation of Joints or Extremities Neurological: Cranial nerves II-XII grossly intact Psych/Mental Status: Normal Affect, Appropriate Laboratory Results 09/19/19 13:51: WBC 16.2 H, RBC 5.68, Hgb 16.7 H, Hct 52.7, MCV 92.8, MCH 29.4, MCHC 31.7 L, RDW Std Deviation 44.6 H, RDW Coeff of Kristen 13.2, Plt Count 301, MPV 10.3, Immature Gran % (Auto) 0.600, Neut % (Auto) 55.2, Lymph % (Auto) 34.0, [place] % (Auto) 9.5, Eos % (Auto) 0.3, Baso % (Auto) 0.4, Absolute Neuts (auto) 9.0 H, Absolute Lymphs (auto) 5.52 H, Nucleated RBC % 0, Differential Comment SCANNED, Diff Path Review January, Reactive Lymphocytes 1+ 09/19/19 13:51: Sodium 137, Potassium 3.5, Chloride 101, Carbon Dioxide 28.0, Anion Gap 8, BUN 18, Creatinine 1.23, Estim Creat Clear Calc 72.73, Est GFR (MDRD) Af Amer 78, Est GFR (MDRD) Non-Af 64, BUN/Creatinine Ratio 14.6, Glucose 106, Calcium 8.6, Magnesium 2.5, Total Bilirubin 1.40 H, AST 55 H, ALT 135 H, Alkaline Phosphatase 99, Troponin I < 0.015, Total Protein 7.7, Albumin 3.6, Globulin 4.1, Albumin/Globulin Ratio 0.9 09/19/19 15:06: Lactic Acid 1.7 09/19/19 18:14: Hepatitis A IgM Ab Pending, Hepatitis A Ab Total Pending, Hep Bs Antigen Pending, Hep B Core Total Ab Pending, Hep B Core IgM Ab Pending 09/19/19 18:15: Magnesium 2.5, TSH 2.49, Free T4 1.10 09/19/19 18:15: Troponin I 0.017 09/19/19 21:10: Troponin I 0.021 09/19/19 23:45: Troponin I 0.031 09/20/19 03:50: WBC 11.9 H, RBC 4.55 L, Hgb 13.6, Hct 42.0, MCV 92.3, MCH 29.9, MCHC 32.4, RDW Std Deviation 45.4 H, RDW Coeff of Kristen 13.4, Plt Count 247, MPV 10.0, Immature Gran % (Auto) 0.500, Neut % (Auto) 59.2, Lymph % (Auto) 31.4, [place] % (Auto) 8.2, Eos % (Auto) 0.3, Baso % (Auto) 0.4, Absolute Neuts (auto) 7.0, Absolute Lymphs (auto) 3.74, Nucleated RBC % 0 09/20/19 03:50: Sodium 139, Potassium 4.1, Chloride 107, Carbon Dioxide 28.0, Anion Gap 4 L, BUN 17, Creatinine 1.00, Estim Creat Clear Calc 89.46, Est GFR (MDRD) Af Amer 99, Est GFR (MDRD) Non-Af 82, BUN/Creatinine Ratio 17.1, Glucose 92, Calcium 7.7 L, Total Bilirubin 1.10 H, AST 45 H, ALT 119 H, Alkaline Phosphatase 86, Total Protein 6.2 L, Albumin 3.0 L, Globulin 3.2, Albumin/Globulin Ratio 0.9, Triglycerides 81, Cholesterol 116, LDL Cholesterol 70, VLDL Cholesterol 16, HDL Cholesterol 30 L Current Medications Acetaminophen (Tylenol) 650 mg PO Q6H PRN PRN PRN Reason: Non-cardiac pain (4-10/10) Hydrocodone Bitart/Acetaminophen (Gause 5mg-325mg) 1 - 2 tablet PO Q6H PRN PRN PRN Reason: Pain Score 4-10/10 Al Hydroxide/Mg Hydroxide (Mylanta Ii) 15 - 30 ml PO Q4H PRN PRN PRN Reason: INDIGESTION Albuterol Sulfate (Ventolin Aerosols) 2.5 mg INHALATION Q2H PRN PRN PRN Reason: dyspnea, wheezing Aspirin (Aspirin, Baby) 81 mg PO DAILY@0800 [facility] Diltiazem HCl (Cardizem Cd) 120 mg PO DAILY [facility] Enoxaparin Sodium (Lovenox) 40 mg SC DAILY [facility] Glucagon () 1 mg IM .X1 PRN PRN Reason: Hypoglycemia Guaifenesin (Mucinex) 1,200 mg PO BID [facility] Last Admin: 09/19/19 21:10 Dose: 1,200 mg Documented by: Hydralazine HCl (Apresoline Iv) 10 mg IV Q4H PRN PRN PRN Reason: SBP > 160 Sodium Chloride () 1,000 mls @ 125 mls/hr IV .Q8H [facility] Last Infusion: 09/20/19 05:00 Dose: 125 mls/hr Documented by: Ceftriaxone Sodium 2 gm/ (Sodium Chloride) 50 mls @ 100 mls/hr IV Q24 [facility] Stop: 09/27/19 10:01 Azithromycin 500 mg/ Dextrose 255 mls @ 250 mls/hr IV Q24 [facility] Stop: 09/25/19 10:01 Diltiazem HCl 125 mg/ Dextrose 125 mls @ 5 mls/hr IV .Q25H [facility]; Protocol Last Titration: 09/20/19 05:00 Dose: 0 mg/hr, 0 mls/hr Documented by: Dextrose (Dextrose 10%-Water) 250 mls @ 999 mls/hr IV .Q16M PRN; Protocol PRN Reason: HYPOGLYCEMIA Magnesium Hydroxide (Milk Of Magnesia) 30 ml PO DAILY PRN PRN Reason: Constipation Melatonin (Melatonin) 3 mg PO QHS PRN PRN PRN Reason: INSOMNIA Morphine Sulfate () 1 - 2 mg IV Q4H PRN PRN PRN Reason: Pain Score 1-10/10 Nitroglycerin (Nitrostat) 0.4 mg SUBLINGUAL Q5M PRN PRN Reason: CARDIAC/CHEST PAIN Ondansetron HCl (Zofran) 4 mg IV Q8H PRN PRN PRN Reason: NAUSEA/VOMITING Sodium Chloride () 10 - 40 ml IV UD PRN PRN Reason: SALINE FLUSH Last Admin: 09/19/19 17:52 Dose: 10 ml Documented by: Throat Lozenges (Cepacol Sore Throat Lozenge) 1 lozenge MUCOUS MEM Q2H PRN PRN PRN Reason: Sore Throat/Cough STROKE Vital Signs/Narrative: Vital Signs Pulse Resp BP BP Pulse Ox 09/20/19 08:00 56 L 15 145/106 H 96 09/20/19 07:11 49 L 09/20/19 07:00 52 L 16 125/91 H 966 09/20/19 06:00 52 L 18 127/94 H 98 09/20/19 05:00 55 L 21 H 135/104 H 96 Medical Necessity - Tobacco Use Smoking Status: Never smoker Tobacco Use: Non-smoker Assessment/Plan All Active Problems SVT (supraventricular tachycardia) (Acute) Pneumonia (Acute) The patient is a 59 y/o M WITH HISTORY OF GERD, Chronic palpitations for about 30 years admitted with palpitation. Patient also has cough, shortness of breath on exertion for 1 week along with fever and chills for last 4 days. EKG in ER shows SVT which was converted after metoprolol IV and Cardizem IV bolus. 1. Acute on persistent PSVT: Patient is being admitted in ICU. Discussed with the internet webmaster. 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 Patient amiodarone drip has been stopped secondary to concern for bradycardia. 2D echo is ordered. Patient might need further evaluation by EP as an outpatient and ablation therapy if indicated. Serial troponin enzymes are negative. Magnesium 2.5, K4.1. TSH and free T4 are normal limit. 2. Community Acquired Pneumonia: Chest x-ray reviewed and is negative for consolidation. Shows 1.3 cm nodular density over right lower lobe; reported as possible pulmonary nodule versus nipple shadow. Patient on IV ceftriaxone, azithromycin, incentive spirometry, chest physiotherapy and Mucinex. Respiratory panel and blood cultures x2 are pending. Urinary antigens are uncollected. 3. Elevated LFTs: Patient denies drinking alcohol. He drank about 2 to 3 years in teenage. Transaminases are improving. Total bili 1.1. Hepatitis profile pending. 4. Obesity: Weight loss and lifestyle changes encouraged, nutrition consulted. 5. GERD: Maintained on famotidine. 6. DVT prophylaxis: SCDs, Lovenox. Laboratory Results 09/19/19 13:51: WBC 16.2 H, RBC 5.68, Hgb 16.7 H, Hct 52.7, MCV 92.8, MCH 29.4, MCHC 31.7 L, RDW Std Deviation 44.6 H, RDW Coeff of Kristen 13.2, Plt Count 301, MPV 10.3, Immature Gran % (Auto) 0.600, Neut % (Auto) 55.2, Lymph % (Auto) 34.0, [place] % (Auto) 9.5, Eos % (Auto) 0.3, Baso % (Auto) 0.4, Absolute Neuts (auto) 9.0 H, Absolute Lymphs (auto) 5.52 H, Nucleated RBC % 0, Differential Comment SCANNED, Diff Path Review May foll, Reactive Lymphocytes 1+ 09/19/19 13:51: Sodium 137, Potassium 3.5, Chloride 101, Carbon Dioxide 28.0, Anion Gap 8, BUN 18, Creatinine 1.23, Estim Creat Clear Calc 72.73, Est GFR (MDRD) Af Amer 78, Est GFR (MDRD) Non-Af 64, BUN/Creatinine Ratio 14.6, Glucose 106, Calcium 8.6, Magnesium 2.5, Total Bilirubin 1.40 H, AST 55 H, ALT 135 H, Alkaline Phosphatase 99, Troponin I < 0.015, Total Protein 7.7, Albumin 3.6, Globulin 4.1, Albumin/Globulin Ratio 0.9 09/19/19 15:06: Lactic Acid 1.7 09/19/19 18:14: Hepatitis A IgM Ab Pending, Hepatitis A Ab Total Pending, Hep Bs Antigen Pending, Hep B Core Total Ab Pending, Hep B Core IgM Ab Pending 09/19/19 18:15: Magnesium 2.5, TSH 2.49, Free T4 1.10 09/19/19 18:15: Troponin I 0.017 09/19/19 21:10: Troponin I 0.021 09/19/19 23:45: Troponin I 0.031 09/20/19 03:50: WBC 11.9 H, RBC 4.55 L, Hgb 13.6, Hct 42.0, MCV 92.3, MCH 29.9, MCHC 32.4, RDW Std Deviation 45.4 H, RDW Coeff of Kristen 13.4, Plt Count 247, MPV 10.0, Immature Gran % (Auto) 0.500, Neut % (Auto) 59.2, Lymph % (Auto) 31.4, [place] % (Auto) 8.2, Eos % (Auto) 0.3, Baso % (Auto) 0.4, Absolute Neuts (auto) 7.0, Absolute Lymphs (auto) 3.74, Nucleated RBC % 0 09/20/19 03:50: Sodium 139, Potassium 4.1, Chloride 107, Carbon Dioxide 28.0, Anion Gap 4 L, BUN 17, Creatinine 1.00, Estim Creat Clear Calc 89.46, Est GFR (MDRD) Af Amer 99, Est GFR (MDRD) Non-Af 82, BUN/Creatinine Ratio 17.1, Glucose 92, Calcium 7.7 L, Total Bilirubin 1.10 H, AST 45 H, ALT 119 H, Alkaline Phosphatase 86, Total Protein 6.2 L, Albumin 3.0 L, Globulin 3.2, Albumin/Globulin Ratio 0.9, Triglycerides 81, Cholesterol 116, LDL Cholesterol 70, VLDL Cholesterol 16, HDL Cholesterol 30 L Clinical Impression(s) from Imaging Studies Chest X-Ray 09/19/19 14:13 IMPRESSION: 1. No acute findings. 2. A 1.3 cm nodular density projected over the right lower lobe. Possible pulmonary nodule versus nipple shadow. Options for further evaluation include repeat PA view with nipple markers or CT of the chest. 3. Old granulomatous disease. Liver Ultrasound 09/19/19 17:39 IMPRESSION: 1. Mild hepatomegaly. 2. Echogenic liver suggestive of steatosis. 3. The pancreatic head and tail were not well visualized. 4. Prominent right renal periods. Code Visit Inpatient E&M: 06418 Subs Hosp L3
--- NOTE | 2019-09-20 09:29 | CASEMGMT ---
MY ENRIQUEZ Assessment Presentation: Pt states his PCP had dropped him from practice because he hadn't been for f/u in 3 years. Needs new PCP, has not initiated finding new physician. List of area physicians given to patient. Pt states he hasn't been sick so he doesn't go to the doctor. MY ENRIQUEZ discussed benefits of establishing with new physician and yearly physical. PCP: No PCP Specialists: Dr. Pelayo Preferred Pharmacy: [facility] Insurance: [employer] Prescription Benefit: yes LNOK: , Tasha Portillo Living Arrangements: Lives independently, no care needs Transportation: drives DME: none Patient DC goals: home DC PLAN: Home Darcy BULLOCK RN ACM
[2019-09-20 09:30] LABS: Pathologist Review Reviewed
[2019-09-20] MEDS: guaiFENesin 1,200 MG Tablet 1200 MG PO ×2 (09:40→21:42)
[2019-09-20] MEDS: Enoxaparin 40 MG/0.4 ML Syringe SC (09:40)
[2019-09-20] MEDS: Aspirin 81 MG TAB.CHEW PO (09:40)
[2019-09-20] MEDS: dilTIAZem CD 120 MG Capsule PO (09:41)
--- NOTE | 2019-09-20 14:37 | CHAPLAIN ---
Type of Pastoral Visit _x__ Initial Visit ___ Follow-up Visit ___ On-call Visit ___ General Patient Visit ___ Spiritual Assessment ___ Family Conference ___ Bereavement ___ Rapid Response ___ Code Blue ___ Other (describe below) Pastoral Care Referral From _x__ Patient ___ Family ___ Nurse ___ Physician ___ Costuming Supervisor ___ Deputy Brand Inspector ___ Other (describe below) Sacrament/Intervention _x__ Active listening ___ Anointing ___ Buddhist ___ Bereavement ___ Communion ___ Leslie exploration ___ ___ Life review _x__ Prayer ___ Reconciliation ___ Sacrament of Sick ___ Supportive presence ___ Wedding ___ Other (describe below) Pastoral Comments
--- NOTE | 2019-09-20 15:33 | CT_ITS ---
STUDY: CT CHEST WITHOUT CONTRAST REASON FOR EXAM: Male, 59 years old. Lung nodule seen in right lower lobe on CXR, pneumonia, non-smoker. RADIATION DOSAGE (If Supplied By Facility): CTDIvol = ( 20.72 ) mGy, DLP = ( 713.67 ) mGycm TECHNIQUE: Transaxial imaging was performed without the administration of intravenous contrast material. Individualized dose optimization techniques were used for this CT. COMPARISON: None. FINDINGS: There is a small calcified granuloma of the right upper lobe. There is a coarse reticular pattern of the lung bases. There is no demonstrated pleural abnormality. Normal heart and pericardium. There is a calcified right mediastinal node. There are calcified right hilar nodes. Normal unenhanced pulmonary arteries. There is mild aneurysmal dilatation of the ascending thoracic aorta measuring up to 4.1 cm. There is endplate spondylosis of the thoracic spine. There is decreased hepatic parenchymal density consistent with steatosis. CT/Chest without Contrast IMPRESSION: 1. Small calcified granuloma of the right upper lobe. 2. Calcified right mediastinal and hilar nodes. 3. There is a coarse reticular pattern of the lung bases. 4. There is mild aneurysmal dilatation of the ascending thoracic aorta measuring up to 4.1 cm. 5. Hepatic steatosis. Electronically Signed: Naeem Sweeney MD at 17:47 EST , Service support ,
--- NOTE | 2019-09-20 20:27 | EKG12_ITS ---
Test Reason : Blood Pressure : / mmHG Vent. Rate : 154 BPM Atrial Rate : 024 BPM P-R Int : 000 ms QRS Dur : 096 ms QT Int : 314 ms P-R-T Axes : 000 057 031 degrees QTc Int : 502 ms Supraventricular tachycardia Nonspecific ST abnormality Abnormal ECG Confirmed by DEEDEE MACIAS, MARINA ([id number]), deputy editor in chief PHUONG HAMILTON ([id number]) on 09/25/2019 11:15:04 AM Referred By: Confirmed By:MARINA MARK MD
[2019-09-20] MEDS: Adenosine 6 MG/2 ML Syringe IV (20:42)
[2019-09-21] VITALS (32 sets, daily range): BP systolic 125–174; BP diastolic 90–117; PULSE 54–159; RESP 15–25; TEMP 36.6–37; O2SAT 94–98
[2019-09-21 05:06] LABS: HEPATITIS B SURFACE AG Negative (Negative); Hepatitis A AB, Total Negative (Negative); Hepatitis A IgM Antibody Negative (Negative); Hepatitis B Core AB IgM Negative (Negative); Hepatitis B Core Ab Total Negative (Negative); Hepatitis C Ab <0.1 s/co ratio (0.0-0.9)
--- NOTE | 2019-09-21 05:45 | EKG12_ITS ---
Test Reason : AM Blood Pressure : / mmHG Vent. Rate : 060 BPM Atrial Rate : 060 BPM P-R Int : 154 ms QRS Dur : 104 ms QT Int : 472 ms P-R-T Axes : 062 056 044 degrees QTc Int : 472 ms Normal sinus rhythm Normal ECG Confirmed by DEEDEE MACIAS, MARINA ([id number]), editor map PHUONG HAMILTON ([id number] on 09/25/2019 11:36:29 AM Referred By: Confirmed By:MARINA MARK MD
--- NOTE | 2019-09-21 06:34 | PN.CARD_ITS ---
Subjectve: Patient seen and evaluated. Events of last night noted. Had recurrent SVT requiring adenosine and starting IV amiodarone Objective: Vital Signs Temp Pulse Resp BP Pulse Ox 97.9 F 54 L 17 129/97 H 94 09/21/19 05:00 09/21/19 05:00 09/21/19 05:00 09/21/19 05:00 09/21/19 05:00 Oxygen Delivery Method Room Air Weight: 284 lb 9 oz Body Mass Index (BMI) 38.9 Intake and Output for Last 24 Hours 09/19/19 09/20/19 09/21/19 23:59 23:59 23:59 Intake Total 2279.33 / 3029.33 3045.33 / 3061.98 264.50 / 264.50 Output Total 200 / 200 750 / 750 Balance 2079.33 / 2829.33 2295.33 / 2311.98 264.50 / 264.50 General: Awake, Alert, Oriented x 3 HEENT: PERRL, EOMI, Sclera Non Icteric Neck: Supple, Good ROM, No Lymph Node Enlargement Lungs: Clear to auscultation Cardiovascular: Regular Rhythm, Normal S1, Normal S2, No Murmurs, No Rubs, No Gallops Vascular: No Carotid Bruits, Normal Femoral Pulses, Normal Radial Pulses, Normal Dorsalis Pedal Pulse, Normal Posterior Tibial Pulses Abdomen: Bowel Sounds Present, Soft, Non Tender, No HSM, No Organomegaly Extremities: No Cyanosis, No Clubbing, No edema Musculoskeletal: No Erythema Skin: No Rashes Lymphatic: No Lymph Node Enlargement Neurological: No Focal Motor or Sensory Deficit Psych/Mental Status: Appropriate Rhythm: EKG: ECHO: Stress Test: Cardiac Cath: PCI: CT Surgery: Holter monitor: EPS: PPM: CXR: Chest CT Scan: Medical Necessity - Tobacco Use Smoking Status: Never smoker Tobacco Use: Non-smoker Assessment/Plan 1. PSVT The patient does have underlying PSVT. Due to the recurrence of the AVNRT which was refractory to intravenous adenosine intravenous amiodarone was star toan. He is currently on a drip and this appears to be maintaining sinus rhythm. We will continue for now and will switch over to p.o. amiodarone * Echocardiogram demonstrated overall preserved left ventricular systolic function estimated EF 55% with mild mitral regurgitation Eventually he should be recommended for EP consultation for EPS/RFA. 2. Pneumonia He is being evaluated by internal medicine for concerns of underlying pneumonia. He has received IV antibiotics. 3. GERD He will continue evaluation care per internal medicine as deemed appropriate. 4. Obesity Unfortunately he is overweight/obese. He has been counseled on the need to try and bring his weight under better control. Thank you for allowing me to participate in the care of your patient. Please don't hesitate to call if any issues arise
[2019-09-21] MEDS: Aspirin 81 MG TAB.CHEW PO (07:31)
[2019-09-21] MEDS: guaiFENesin 1,200 MG Tablet 1200 MG PO (09:23)
[2019-09-21] MEDS: Enoxaparin 40 MG/0.4 ML Syringe SC (09:23)
[2019-09-21] MEDS: dilTIAZem CD 120 MG Capsule PO ×2 (09:24→22:50)
--- NOTE | 2019-09-21 09:28 | PN_ITS ---
Patient Problems: Active and Suspected Problems SVT (supraventricular tachycardia) (Acute) Pneumonia (Acute) Reason for Visit: During last evening, patient had tachycardia 151/min recurrent SVT that required adenosine and starting IV amiodarone drip. Objective: Currently patient is normal sinus rhythm heart rate controlled in 60s. Pressure 148/96. 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 Vitals/I&O's: Vital Signs Temp Pulse Resp BP Pulse Ox 97.9 F 65 21 H 148/93 H 96 09/21/19 05:00 09/21/19 08:00 09/21/19 08:00 09/21/19 08:00 09/21/19 08:00 Oxygen Delivery Method Room Air Weight: 284 lb 9 oz Body Mass Index (BMI) 38.9 Intake and Output for Last 24 Hours 09/19/19 09/20/19 09/21/19 23:59 23:59 23:59 Intake Total 2279.33 / 3029.33 3045.33 / 3061.98 331.30 / 331.30 Output Total 200 / 200 750 / 750 Balance 2079.33 / 2829.33 2295.33 / 2311.98 331.30 / 331.30 General: Alert, Oriented x3, Cooperative HEENT: Atraumatic, PERRLA, EOMI, Normocephalic Neck: Supple, No JVD, Negative Carotid Bruits Lungs: Clear to auscultation, No rhonchi, No wheeze, No rales, Diminished Cardiovascular: Regular rate, Regular Rhythm, Normal S1, Normal S2, No murmurs Abdomen: Bowel Sounds Present, Soft, Non Tender, Non-Distended Extremities: No edema, Capillary Refill Less than 3 Seconds Skin: No rashes, No breakdown Musculoskeletal: No Tenderness to Palpation of Joints or Extremities Neurological: Cranial nerves II-XII grossly intact Psych/Mental Status: Normal Affect, Appropriate Microbiology Past 72 Hours 09/20/19 11:00 Urine, Random Streptococcus pneumoniae Antigen (M - Final 09/20/19 11:00 Urine, Random Legionella Antigen - Final 09/19/19 20:35 Mucosa - Nasopharyngeal Respiratory Panel (PCR) - Final Laboratory Results 09/19/19 13:51: Diff Path Review Reviewed Current Medications Acetaminophen (Tylenol) 650 mg PO Q6H PRN PRN PRN Reason: Non-cardiac pain (4-10/10) Hydrocodone Bitart/Acetaminophen ([place] 5mg-325mg) 1 - 2 tablet PO Q6H PRN PRN PRN Reason: Pain Score 4-10/10 Al Hydroxide/Mg Hydroxide (Mylanta Ii) 15 - 30 ml PO Q4H PRN PRN PRN Reason: INDIGESTION Albuterol Sulfate (Ventolin Aerosols) 2.5 mg INHALATION Q2H PRN PRN PRN Reason: dyspnea, wheezing Amiodarone HCl (Cordarone) 200 mg PO X1 ONE Stop: 09/21/19 18:01 Amiodarone HCl (Cordarone) 200 mg PO BID [facility] Aspirin (Aspirin, Baby) 81 mg PO DAILY@0800 [facility] Last Admin: 09/21/19 07:31 Dose: 81 mg Documented by: Diltiazem HCl (Cardizem Cd) 120 mg PO DAILY [facility] Last Admin: 09/21/19 09:24 Dose: 120 mg Documented by: Enoxaparin Sodium (Lovenox) 40 mg SC DAILY [facility] Last Admin: 09/21/19 09:23 Dose: 40 mg Documented by: Glucagon () 1 mg IM .X1 PRN PRN Reason: Hypoglycemia Guaifenesin (Mucinex) 1,200 mg PO BID [facility] Last Admin: 09/21/19 09:23 Dose: 1,200 mg Documented by: Hydralazine HCl (Apresoline Iv) 10 mg IV Q4H PRN PRN PRN Reason: SBP > 160 Ceftriaxone Sodium 2 gm/ (Sodium Chloride) 50 mls @ 100 mls/hr IV Q24 [facility] Stop: 09/27/19 10:01 Last Admin: 09/21/19 09:24 Dose: 100 mls/hr Documented by: Azithromycin 500 mg/ Dextrose 255 mls @ 250 mls/hr IV Q24 [facility] Stop: 09/25/19 10:01 Last Admin: 09/21/19 09:24 Dose: 250 mls/hr Documented by: Dextrose (Dextrose 10%-Water) 250 mls @ 999 mls/hr IV .Q16M PRN; Protocol PRN Reason: HYPOGLYCEMIA Amiodarone HCl 360 mg/ (Dextrose) 200 mls @ 16.667 mls/hr CONT INF .Q12H [facility] Stop: 09/21/19 21:00 Last Infusion: 09/21/19 08:00 Dose: 0.5 mg/min, 16.7 mls/hr Documented by: Magnesium Hydroxide (Milk Of Magnesia) 30 ml PO DAILY PRN PRN Reason: Constipation Melatonin (Melatonin) 3 mg PO QHS PRN PRN PRN Reason: INSOMNIA Morphine Sulfate () 1 - 2 mg IV Q4H PRN PRN PRN Reason: Pain Score 1-10/10 Nitroglycerin (Nitrostat) 0.4 mg SUBLINGUAL Q5M PRN PRN Reason: CARDIAC/CHEST PAIN Ondansetron HCl (Zofran) 4 mg IV Q8H PRN PRN PRN Reason: NAUSEA/VOMITING Sodium Chloride () 10 - 40 ml IV UD PRN PRN Reason: SALINE FLUSH Last Admin: 09/19/19 17:52 Dose: 10 ml Documented by: Throat Lozenges (Cepacol Sore Throat Lozenge) 1 lozenge MUCOUS MEM Q2H PRN PRN PRN Reason: Sore Throat/Cough STROKE Vital Signs/Narrative: Vital Signs Pulse Resp BP Pulse Ox 09/21/19 08:00 65 21 H 148/93 H 96 09/21/19 07:00 56 L 21 H 138/94 H 95 09/21/19 06:49 58 L 09/21/19 06:00 58 L 17 140/97 H 96 Medical Necessity - Tobacco Use Smoking Status: Never smoker Tobacco Use: Non-smoker Assessment/Plan All Active Problems SVT (supraventricular tachycardia) (Acute) Pneumonia (Acute) The patient is a 59 y/o M WITH HISTORY OF GERD, Chronic palpitations for about 30 years admitted with palpitation. Patient also has cough, shortness of breath on exertion for 1 week along with fever and chills for last 4 days. EKG in ER shows SVT which was converted after metoprolol IV and Cardizem IV bolus. 1. Acute on persistent PSVT: Patient is being admitted in ICU. Discussed with the communications billing analyst. 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 Patient amiodarone drip has been stopped secondary to concern for bradycardia. 2D echo is ordered. Patient might need further evaluation by EP as an outpatient and ablation therapy if indicated. Serial troponin enzymes are negative. Magnesium 2.5, K4.1. TSH and free T4 are normal limit. 09/21/2019: Patient is on IV amiodarone drip and is expected to be switched over to amiodarone tablet in evening today. Discussed with communications billing analyst. 2D echo was done on 09/20/2019: Left ventricular systolic function is normal. The estimated ejection fraction is 55 %. The left atrium is moderately enlarged. The right atrium is mildly enlarged. Moderate (2+) mitral valve insufficiency. Mild to moderate (1-2+) tricuspid valve insufficiency. Trivial pulmonic valve insufficiency. Right ventricular systolic pressure estimated to be 30 mmHg. No evidence for diastolic dysfunction. 2. Community Acquired Pneumonia: Chest x-ray reviewed and is negative for consolidation. Shows 1.3 cm nodular density over right lower lobe; reported as possible pulmonary nodule versus nipple shadow. Patient on IV ceftriaxone, azithromycin, incentive spirometry, chest physiotherapy and Mucinex. Respiratory panel and blood cultures x2 are pending. Urinary antigens are uncollected. 09/21/2019: Urinary antigens are negative. Respiratory panel is negative. Blood culture negative for [address] chest finding discussed with the patient's . Reported as small calcified granuloma of right upper lobe and coarse reticular pattern of lung bases, possible interstitial lung disease. Patient has exposure history of dust as occupational history. Advised follow-up in pulmonary clinic in 2 to 3 weeks for outpatient PFT, sleep study. Continue antibiotic to complete a course of total of 7 days. 3. Elevated LFTs: Patient denies drinking alcohol. He drank about 2 to 3 years in teenage. Transaminases are improving. Total bili 1.1. Hepatitis profile is negative. Right upper quadrant sonogram shows fatty hematoma early. Advised weight control and decreased calorie intake. 4. Obesity: Weight loss and lifestyle changes encouraged, nutrition consulted. 5. GERD: Maintained on famotidine. 6. DVT prophylaxis: SCDs, Lovenox. Microbiology Past 72 Hours 09/19/19 15:15 Blood Culture (Wb) - Left Hand Blood Culture - Preliminary No growth in 48 hours. 09/19/19 15:06 Blood Culture (Wb) - Anticubital Right Blood Culture - Preliminary No growth in 48 hours. 09/20/19 11:00 Urine, Random Streptococcus pneumoniae Antigen (M - Final 09/20/19 11:00 Urine, Random Legionella Antigen - Final 09/19/19 20:35 Mucosa - Nasopharyngeal Respiratory Panel (PCR) - Final Laboratory Results 09/19/19 18:14: Hepatitis A IgM Ab Negative, Hepatitis A Ab Total Negative, Hep Bs Antigen Negative, Hep B Core Total Ab Negative, Hep B Core IgM Ab Negative, Hepatitis C Ab Confirm <0.1, Hep C Confirm Com 1 Comment Laboratory Results 09/20/19 03:50: WBC 11.9 H, RBC 4.55 L, Hgb 13.6, Hct 42.0, MCV 92.3, MCH 29.9, MCHC 32.4, RDW Std Deviation 45.4 H, RDW Coeff of Kristen 13.4, Plt Count 247, MPV 10.0, Immature Gran % (Auto) 0.500, Neut % (Auto) 59.2, Lymph % (Auto) 31.4, [place] % (Auto) 8.2, Eos % (Auto) 0.3, Baso % (Auto) 0.4, Absolute Neuts (auto) 7.0, Absolute Lymphs (auto) 3.74, Nucleated RBC % 0 09/20/19 03:50: Sodium 139, Potassium 4.1, Chloride 107, Carbon Dioxide 28.0, Anion Gap 4 L, BUN 17, Creatinine 1.00, Estim Creat Clear Calc 89.46, Est GFR (MDRD) Af Amer 99, Est GFR (MDRD) Non-Af 82, BUN/Creatinine Ratio 17.1, Glucose 92, Calcium 7.7 L, Total Bilirubin 1.10 H, AST 45 H, ALT 119 H, Alkaline Phosphatase 86, Total Protein 6.2 L, Albumin 3.0 L, Globulin 3.2, Albumin/Globulin Ratio 0.9, Triglycerides 81, Cholesterol 116, LDL Cholesterol 70, VLDL Cholesterol 16, HDL Cholesterol 30 L Clinical Impression(s) from Imaging Studies Chest X-Ray 09/19/19 14:13 IMPRESSION: 1. No acute findings. 2. A 1.3 cm nodular density projected over the right lower lobe. Possible pulmonary nodule versus nipple shadow. Options for further evaluation include repeat PA view with nipple markers or CT of the chest. 3. Old granulomatous disease. Liver Ultrasound 09/19/19 17:39 IMPRESSION: 1. Mild hepatomegaly. 2. Echogenic liver suggestive of steatosis. 3. The pancreatic head and tail were not well visualized. 4. Prominent right renal periods. Code Visit Inpatient E&M: 83283 Subs Hosp L3
[2019-09-21 13:03] LABS: Hep B Surface Antibodies Non Reactive (.)
[2019-09-21] MEDS: dilTIAZem 25 MG/5 ML Vial IV BOLUS (16:11)
[2019-09-22] VITALS (24 sets, daily range): BP systolic 124–169; BP diastolic 74–93; PULSE 54–81; RESP 16–28; TEMP 36.9–37.2; O2SAT 93–98
--- NOTE | 2019-09-22 07:30 | PCM.PROGNOTE ---
Patient Problems: Active and Suspected Problems SVT (supraventricular tachycardia) (Acute) Pneumonia (Acute) Subjective: The patient is a 59-year-old male with a past medical history of GERD and obesity who presented to the emergency department at [facility] on 09/19/2019 complaining of productive cough and shortness of breath. He had been seen at an [facility] and was found to have a HR in the 200's and he was sent to the ED. He converted to NSR spontaneously in the ED but had recurrent episodes of SVT in the ED and eventually was started on Amiodarone infusion. He was admitted to a monitored bed on PCU and cardiology was consulted. Dr. Pelayo felt the pt had a re-entrant mechanism that leads to the PSVT. He is also being treated with Azithromycin and Rocephin for suspected CAP. Echocardiogram showed a 55% EF with mild MR. All events of the past 24 hours been reviewed He is currently on amiodarone infusion at 0.5 mg/min and diltiazem 120 mg twice daily for rate control. Heart rate since 11 PM last night has ranged from 54-66. Blood pressure is stable. He is maintaining appropriate oxygen saturation of 94 to 96% on room air. No lab since 09/20. At that time the potassium was 4.1. LFT's are mildly abnormal and US shows hepatic steatosis. Lipid panel shows an LDL of 70 and an HDL which is low at 30. TSH and T4 were within normal limits. Triglycerides are 81. Hepatitis panel was negative. Respiratory panel was negative. Streptococcal and Legionella antigens in the urine were negative. Blood cultures have had no growth. Sputum was finally obtained on 09/21/2019 and Gram stain and culture are pending. Denies SOB, CP, lightheadedness. No tachycardia on the monitor since last night between 9-10. - Physical Exam Vitals/I&O's: Vital Signs Temp Pulse Resp BP Pulse Ox 98.9 F 55 L 16 126/80 H 96 09/22/19 03:00 09/22/19 07:00 09/22/19 07:00 09/22/19 07:00 09/22/19 07:00 Oxygen Delivery Method Room Air Weight: 279 lb 15.793 oz Body Mass Index (BMI) 38.9 Intake and Output for Last 24 Hours 0109/21/19 09/22/19 23:59 23:59 23:59 Intake Total 3045.33 / 3061.98 2073.04 / 2089.74 233.33 / 233.33 Output Total 750 / 750 1200 / 1200 Balance 2295.33 / 2311.98 873.04 / 889.74 233.33 / 233.33 General: Alert, Oriented x3, Cooperative, No apparent distress, Well developed, Well nourished HEENT: Atraumatic Oral: Moist Mucosa Neck: Supple, Trachea Midline Lungs: Clear to auscultation, No wheeze, No rales, Diminished - mildy diminished throughut. Cardiovascular: Regular rate, Regular Rhythm, Normal S1, Normal S2, No murmurs, No Gallop Abdomen: Bowel Sounds Present, Soft, Non Tender, Non-Distended, Obese Extremities: No clubbing, No cyanosis, No edema Skin: No rashes Neurological: Cranial nerves II-XII grossly intact, Neuro grossly intact Psych/Mental Status: Normal Affect, Appropriate Microbiology Past 72 Hours 09/19/19 15:15 Blood Culture (Wb) - Left Hand Blood Culture - Preliminary No growth in 48 hours. 09/19/19 15:06 Blood Culture (Wb) - Anticubital Right Blood Culture - Preliminary No growth in 48 hours. 09/20/19 11:00 Urine, Random Streptococcus pneumoniae Antigen (M - Final 09/20/19 11:00 Urine, Random Legionella Antigen - Final 09/19/19 20:35 Mucosa - Nasopharyngeal Respiratory Panel (PCR) - Final Laboratory Results 09/19/19 18:14: Hepatitis A IgM Ab Negative, Hepatitis A Ab Total Negative, Hep Bs Antigen Negative, Hep B Core Total Ab Negative, Hep B Core IgM Ab Negative, Hepatitis C Ab Confirm <0.1, Hep C Confirm Com 1 Comment Current Medications Acetaminophen (Tylenol) 650 mg PO Q6H PRN PRN PRN Reason: Non-cardiac pain (4-10/10) Hydrocodone Bitart/Acetaminophen ([place] 5mg-325mg) 1 - 2 tablet PO Q6H PRN PRN PRN Reason: Pain Score 4-10/10 Al Hydroxide/Mg Hydroxide (Mylanta Ii) 15 - 30 ml PO Q4H PRN PRN PRN Reason: INDIGESTION Albuterol Sulfate (Ventolin Aerosols) 2.5 mg INHALATION Q2H PRN PRN PRN Reason: dyspnea, wheezing Aspirin (Aspirin, Baby) 81 mg PO DAILY@0800 [facility] Last Admin: 09/21/19 07:31 Dose: 81 mg Documented by: Diltiazem HCl (Cardizem Cd) 120 mg PO BID [facility] Last Admin: 09/21/19 22:50 Dose: 120 mg Documented by: Enoxaparin Sodium (Lovenox) 40 mg SC DAILY [facility] Last Admin: 09/21/19 09:23 Dose: 40 mg Documented by: Glucagon () 1 mg IM .X1 PRN PRN Reason: Hypoglycemia Guaifenesin (Mucinex) 1,200 mg PO BID [facility] Last Admin: 09/21/19 21:22 Dose: Not Given Documented by: Hydralazine HCl (Apresoline Iv) 10 mg IV Q4H PRN PRN PRN Reason: SBP > 160 Ceftriaxone Sodium 2 gm/ (Sodium Chloride) 50 mls @ 100 mls/hr IV Q24 [facility] Stop: 09/27/19 10:01 Last Infusion: 09/21/19 09:54 Dose: Infused Documented by: Azithromycin 500 mg/ Dextrose 255 mls @ 250 mls/hr IV Q24 [facility] Stop: 09/25/19 10:01 Last Infusion: 09/21/19 10:34 Dose: Infused Documented by: Dextrose (Dextrose 10%-Water) 250 mls @ 999 mls/hr IV .Q16M PRN; Protocol PRN Reason: HYPOGLYCEMIA Amiodarone HCl 360 mg/ (Dextrose) 200 mls @ 16.667 mls/hr CONT INF .Q12H [facility] Last Infusion: 09/22/19 07:00 Dose: 0.5 mg/min, 16.7 mls/hr Documented by: Magnesium Hydroxide (Milk Of Magnesia) 30 ml PO DAILY PRN PRN Reason: Constipation Melatonin (Melatonin) 3 mg PO QHS PRN PRN PRN Reason: INSOMNIA Morphine Sulfate () 1 - 2 mg IV Q4H PRN PRN PRN Reason: Pain Score 1-10/10 Nitroglycerin (Nitrostat) 0.4 mg SUBLINGUAL Q5M PRN PRN Reason: CARDIAC/CHEST PAIN Ondansetron HCl (Zofran) 4 mg IV Q8H PRN PRN PRN Reason: NAUSEA/VOMITING Sodium Chloride () 10 - 40 ml IV UD PRN PRN Reason: SALINE FLUSH Last Admin: 09/19/19 17:52 Dose: 10 ml Documented by: Throat Lozenges (Cepacol Sore Throat Lozenge) 1 lozenge MUCOUS MEM Q2H PRN PRN PRN Reason: Sore Throat/Cough Medical Necessity - Tobacco Use Smoking Status: Never smoker Tobacco Use: Non-smoker Assessment/Plan All Active Problems SVT (supraventricular tachycardia) (Acute) Pneumonia (Acute) Impressions 1. 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 Continues to have episodic tachycardia despite AMiodarone and Cardizem. Discussed with Dr. Spaulding and he was in contact with Dr. Galarza at [facility] and the pt will be transferred to [facility] and admitted to the hospitalist service with consult for Dr. Galarza. Awaiting a phone call from the admitting hospitalist at [facility] .
[2019-09-22] MEDS: dilTIAZem CD 120 MG Capsule PO (08:17)
[2019-09-22] MEDS: Aspirin 81 MG TAB.CHEW PO (08:17)
[2019-09-22] MEDS: guaiFENesin 1,200 MG Tablet 1200 MG PO (08:17)
[2019-09-22] MEDS: Enoxaparin 40 MG/0.4 ML Syringe SC (08:18)
--- NOTE | 2019-09-22 08:53 | PN.CARD_ITS ---
Subjectve: Patient seen and evaluated. Still having episodes of narrow complex tachycardia despite being on amiodarone drip. Objective: Vital Signs Temp Pulse Resp BP Pulse Ox 98.9 F 54 L 19 H 124/80 H 95 09/22/19 03:00 09/22/19 08:00 09/22/19 08:00 09/22/19 08:00 09/22/19 08:00 Oxygen Delivery Method Room Air Weight: 279 lb 15.793 oz Body Mass Index (BMI) 38.9 Intake and Output for Last 24 Hours 09/20/19 09/21/19 09/22/19 23:59 23:59 23:59 Intake Total 3045.33 / 3061.98 2073.04 / 2089.74 250.03 / 250.03 Output Total 750 / 750 1200 / 1200 Balance 2295.33 / 2311.98 873.04 / 889.74 250.03 / 250.03 General: Awake, Alert, Oriented x 3 HEENT: PERRL, EOMI, Sclera Non Icteric Neck: Supple, Good ROM, No Lymph Node Enlargement Lungs: Clear to auscultation Cardiovascular: Regular Rhythm, Normal S1, Normal S2, No Murmurs, No Rubs, No Gallops Vascular: No Carotid Bruits, Normal Femoral Pulses, Normal Radial Pulses, Normal Dorsalis Pedal Pulse, Normal Posterior Tibial Pulses Abdomen: Bowel Sounds Present, Soft, Non Tender, No HSM, No Organomegaly Extremities: No Cyanosis, No Clubbing, No edema Musculoskeletal: No Erythema Neurological: No Focal Motor or Sensory Deficit Rhythm: EKG: ECHO: Stress Test: Cardiac Cath: PCI: CT Surgery: Holter monitor: EPS: PPM: CXR: Chest CT Scan: Medical Necessity - Tobacco Use Smoking Status: Never smoker Tobacco Use: Non-smoker Assessment/Plan 1. PSVT The patient does have underlying PSVT. Due to the recurrence of the AVNRT which was refractory to intravenous adenosine intravenous amiodarone was started. He is currently on a drip and this appears to be maintaining sinus rhythm which appears to be intermittent We will continue for now and also add the oral diltiazem * Echocardiogram demonstrated overall preserved left ventricular systolic function estimated EF 55% with mild mitral regurgitation Eventually he should be recommended for EP consultation for EPS/RFA. Due to the recurrent episodes while in the hospital I would recommend that we transfer him to a tertiary care center for this to be taken care of. I will speak to the EP physician later this morning. I have spoken to the patient and his and they do understand and agree. Thank you for allowing me to participate in the care of your patient. Please don't hesitate to call if any issues arise
--- NOTE | 2019-09-22 12:55 | DS.PCM_ITS ---
Discharge Date and Diagnosis - Problem List Patient Problems: Active and Suspected Problems SVT (supraventricular tachycardia) (Acute) Pneumonia (Acute) Date of Admission: 09/19/19 Date of Discharge: 09/22/19 - Primary Discharge Diagnosis Active and Suspected Problems SVT (supraventricular tachycardia) (Acute) Pneumonia (Acute) - ruled out Leukocytosis - unclear etiology, may be due to stress - Secondary Discharge Diagnosis Chronic Problems GERD (gastroesophageal reflux disease) (Chronic) Obesity (BMI 30-39.9) (Chronic) Hepatic steatosis Hospital Course and Treatment Imaging Results: Clinical Impression(s) from Imaging Studies Chest X-Ray 09/19/19 14:13 IMPRESSION: 1. No acute findings. 2. A 1.3 cm nodular density projected over the right lower lobe. Possible pulmonary nodule versus nipple shadow. Options for further evaluation include repeat PA view with nipple markers or CT of the chest. 3. Old granulomatous disease. Electronically Signed: Tamar Luna MD at 16:17 EST Tel , Service support , Liver Ultrasound 09/19/19 17:39 IMPRESSION: 1. Mild hepatomegaly. 2. Echogenic liver suggestive of steatosis. 3. The pancreatic head and tail were not well visualized. 4. Prominent right renal periods. Electronically Signed: Naeem Sweeney MD at 21:33 EST , Service support , Chest X-Ray 09/20/19 05:55 IMPRESSION: 1. No acute cardiopulmonary pathology. 2. No significant interval change when compared to 09/19/2019. Electronically Signed: Severo Díaz MD at 10:18 EST , Service support , Chest CT 09/20/19 15:33 IMPRESSION: 1. Small calcified granuloma of the right upper lobe. 2. Calcified right mediastinal and hilar nodes. 3. There is a coarse reticular pattern of the lung bases. 4. There is mild aneurysmal dilatation of the ascending thoracic aorta measuring up to 4.1 cm. 5. Hepatic steatosis. Electronically Signed: Naeem Sweeney MD at 17:47 EST , Service support , Laboratory Results - last 24 hr 09/19/19 18:14 Hepatitis A IgM Ab Negative Hepatitis A Ab Total Negative Hep Bs Antigen Negative Hep B Core Total Ab Negative Hep B Core IgM Ab Negative Hepatitis C Ab Confirm <0.1 Hep C Confirm Com 1 Comment Microbiology 09/21/19 19:25 Sputum, Expectorated/Coughed Respiratory Culture - Preliminary Appears to be normal respiratory corrina. Further studies to follow. 09/19/19 15:15 Blood Culture (Wb) - Left Hand Blood Culture - Preliminary No growth in 48 hours. 09/19/19 15:06 Blood Culture (Wb) - Anticubital Right Blood Culture - Preliminary No growth in 48 hours. 09/20/19 11:00 Urine, Random Streptococcus pneumoniae Antigen (M - Final negative 09/20/19 11:00 Urine, Random Legionella Antigen - Final Negative 09/19/19 20:35 Mucosa - Nasopharyngeal Respiratory Panel (PCR) - Final negative Dr. Spaulding and Dr. Pelayo - [facility] Operations: None Procedures: 2-D Echocardiogram - Interpretation Summary The study was technically difficult. Contrast injection was performed. Left ventricular systolic function is normal. The estimated ejection fraction is 55 %. The left atrium is moderately enlarged. The right atrium is mildly enlarged. Moderate (2+) mitral valve insufficiency. Mild to moderate (1-2+) tricuspid valve insufficiency. Trivial pulmonic valve insufficiency. Right ventricular systolic pressure estimated to be 30 mmHg. No evidence for diastolic dysfunction. Summary of Care Provided: The patient is a 59-year-old male with a past medical history of GERD and obesity who presented to the emergency department at [facility] on 09/19/2019 complaining of productive cough and shortness of breath. He had been seen at an [facility] and was found to have a HR in the 200's and he was sent to the ED. vital signs at presentation to the emergency room were temperature 97 ?F, pulse rate 203, blood pressure 143/108, respiratory rate 24 and he was 96 to 99% saturated on room air. White blood cell count was elevated at 16.2 however the differential was within normal limits. Hemoglobin was increased at 16.7 and platelets were within normal limits. He was noted to have reactive lymphocytes on the CBC. CMP was unremarkable with the exception of an elevated bilirubin at 1.4, elevated AST at 55 and a elevated ALT of 135. Alkaline phosphatase was normal at 99. Troponin was less than 0.015. TSH and T4 were within normal limits. Chest x-ray showed no evidence of pulmonary vascular congestion, infiltrates or pleural effusions. He converted to NSR spontaneously in the ED but had recurrent episodes of SVT in the ED and eventually was started on an Amiodarone infusion. He was admitted to a monitored bed in ICU and cardiology was consulted. He was started on Rocephin and Azithromycin due to the leukocytosis and cough. Dr. Pelayo from cardiology felt the pt had a re-entrant mechanism that leads to the PSVT. He added a Cardizem infusion to the amiodarone. A surface echocardiogram was obtained and showed an ejection fraction of 55% with no wall motion abnormalities. The left atrium was moderately enlarged and the right atrium was mildly enlarged. There was 2+ MR and 1-2+ TR. The right ventricular systolic pressure was estimated to be 30 and there was no evidence of diastolic dysfunction. An ultrasound of the liver was obtained due to the abnormal LFTs and it showed increased echogenicity consistent with hepatic steatosis. Hepatitis panel was negative. He was AF for the duration of his hospital stay and a follow up CXR once again showed no infiltrates or other acute cardiovascular abnormalities. Legionella and streptococcal antigens in the urine were negative. A respiratory panel was negative. Blood cultures from admission had no growth. A sputum was obtained on 09/21/2019 and had 3+ white blood cells but the preliminary on the culture is appears to be normal respiratory corrina. Rocephin and azithromycin were discontinued on 09/22/2019 because there was no evidence he had PNA and the cough is more likely than not due to transient failure when the HR increases into the 200's. He continues to have recurrent episodes of SVT despite amiodarone and Cardizem and he has required adenosine on several occasions and at times this is not effective. Dr. Spaulding saw the pt on 09/21 and 09/22 and on 09/[address] Galarza at [facility] and discussed the case. Dr. Galarza accepted the pt for an EPS but, the pt was admitted to the hospitalist service (Dr. Dilan lopez) with a consult to Dr. Galarza. General: Alert, Oriented x3, Cooperative, No apparent distress, Well developed, Well nourished HEENT: Atraumatic Oral: Moist Mucosa Neck: Supple, Trachea Midline Lungs: Clear to auscultation, No wheeze, No rales, Diminished - mildy diminished throughut. Cardiovascular: Regular rate, Regular Rhythm, Normal S1, Normal S2, No murmurs, No Gallop Abdomen: Bowel Sounds Present, Soft, Non Tender, Non-Distended, Obese Extremities: No clubbing, No cyanosis, No edema Skin: No rashes Neurological: Cranial nerves II-XII grossly intact, Neuro grossly intact Psych/Mental Status: Normal Affect, Appropriate This note was generated with [employer] dictation software. It may contain incorrect words, spelling, and punctuation that were not noted in checking the note before signing. Patient Problems: Active and Suspected Problems SVT (supraventricular tachycardia) (Acute) Pneumonia (Acute) - Physical Exam Vitals/I&O's: Vital Signs Temp Pulse Resp BP Pulse Ox 98.6 F 73 25 H 153/82 H 93 09/22/19 09:00 09/22/19 12:00 09/22/19 12:00 09/22/19 12:00 09/22/19 12:00 Oxygen Delivery Method Room Air Weight: 279 lb 15.793 oz Body Mass Index (BMI) 38.9 Intake and Output for Last 24 Hours 09/20/19 09/21/19 09/22/19 23:59 23:59 23:59 Intake Total 3045.33 / 3061.98 2073.04 / 2089.74 921.83 / 921.83 Output Total 750 / 750 1200 / 1200 500 / 500 Balance 2295.33 / 2311.98 873.04 / 889.74 421.83 / 421.83 Microbiology Past 72 Hours 09/21/19 19:25 Sputum, Expectorated/Coughed Respiratory Culture - Preliminary Appears to be normal respiratory corrina. Further studies to follow. 09/19/19 15:15 Blood Culture (Wb) - Left Hand Blood Culture - Preliminary No growth in 48 hours. 09/19/19 15:06 Blood Culture (Wb) - Anticubital Right Blood Culture - Prelim inary No growth in 48 hours. 09/20/19 11:00 Urine, Random Streptococcus pneumoniae Antigen (M - Final 09/20/19 11:00 Urine, Random Legionella Antigen - Final 09/19/19 20:35 Mucosa - Nasopharyngeal Respiratory Panel (PCR) - Final Laboratory Results 09/19/19 18:14: Hepatitis A IgM Ab Negative, Hepatitis A Ab Total Negative, Hep Bs Antigen Negative, Hep B Core Total Ab Negative, Hep B Core IgM Ab Negative, Hepatitis C Ab Confirm <0.1, Hep C Confirm Com 1 Comment Current Medications Acetaminophen (Tylenol) 650 mg PO Q6H PRN PRN PRN Reason: Non-cardiac pain (4-10/10) Hydrocodone Bitart/Acetaminophen ([place]runing 5mg-325mg) 1 - 2 tablet PO Q6H PRN PRN PRN Reason: Pain Score 4-10/10 Al Hydroxide/Mg Hydroxide (Mylanta Ii) 15 - 30 ml PO Q4H PRN PRN PRN Reason: INDIGESTION Albuterol Sulfate (Ventolin Aerosols) 2.5 mg INHALATION Q2H PRN PRN PRN Reason: dyspnea, wheezing Aspirin (Aspirin, Baby) 81 mg PO DAILY@0800 [facility] Last Admin: 09/22/19 08:17 Dose: 81 mg Documented by: Diltiazem HCl (Cardizem Cd) 120 mg PO BID [facility] Last Admin: 09/22/19 08:17 Dose: 120 mg Documented by: Enoxaparin Sodium (Lovenox) 40 mg SC DAILY [facility] Last Admin: 09/22/19 08:18 Dose: 40 mg Documented by: Glucagon () 1 mg IM .X1 PRN PRN Reason: Hypoglycemia Guaifenesin (Mucinex) 1,200 mg PO BID [facility] Last Admin: 09/22/19 08:17 Dose: 1,200 mg Documented by: Hydralazine HCl (Apresoline Iv) 10 mg IV Q4H PRN PRN PRN Reason: SBP > 160 Ceftriaxone Sodium 2 gm/ (Sodium Chloride) 50 mls @ 100 mls/hr IV Q24 [facility] Stop: 09/27/19 10:01 Last Infusion: 09/22/19 09:47 Dose: Infused Documented by: Azithromycin 500 mg/ Dextrose 255 mls @ 250 mls/hr IV Q24 [facility] Stop: 09/25/19 10:01 Last Infusion: 09/22/19 10:31 Dose: Infused Documented by: Dextrose (Dextrose 10%-Water) 250 mls @ 999 mls/hr IV .Q16M PRN; Protocol PRN Reason: HYPOGLYCEMIA Amiodarone HCl 360 mg/ (Dextrose) 200 mls @ 16.667 mls/hr CONT INF .Q12H DAVE Last Infusion: 09/22/19 12:00 Dose: 0.5 mg/min, 16.7 mls/hr Documented by: Magnesium Hydroxide (Milk Of Magnesia) 30 ml PO DAILY PRN PRN Reason: Constipation Melatonin (Melatonin) 3 mg PO QHS PRN PRN PRN Reason: INSOMNIA Morphine Sulfate () 1 - 2 mg IV Q4H PRN PRN PRN Reason: Pain Score 1-10/10 Nitroglycerin (Nitrostat) 0.4 mg SUBLINGUAL Q5M PRN PRN Reason: CARDIAC/CHEST PAIN Ondansetron HCl (Zofran) 4 mg IV Q8H PRN PRN PRN Reason: NAUSEA/VOMITING Sodium Chloride () 10 - 40 ml IV UD PRN PRN Reason: SALINE FLUSH Last Admin: 09/19/19 17:52 Dose: 10 ml Documented by: Throat Lozenges (Cepacol Sore Throat Lozenge) 1 lozenge MUCOUS MEM Q2H PRN PRN PRN Reason: Sore Throat/Cough Home Medications: Medications to take at Discharge Gluc Spring/Chondro Spring A/Vit C/Mn [Glucosamine-Chondroitin Cap] 1 cap PO DAILY 09/19/19 Omeprazole Magnesium [Prilosec Otc] 20 mg PO DAILY 09/19/19 Turmeric Root Extract [Turmeric Curcumin] 500 mg PO DAILY 09/19/19 Primary Care Physician: Care Physician,No Primary [Primary Care Provider] - [facility] Minutes spent on discharge:: 40 Medical Necessity - Tobacco Use Smoking Status: Never smoker Tobacco Use: Non-smoker Meaningful Use Info Meaningful Use Diagnoses (Choose all that apply): None applicable Code Visit Inpatient E&M: 75007 Disch Hosp
--- NOTE | 2019-09-22 18:00 | NURSING ---
This RN called to give report to MY Duran at [facility].
== END 2019-09-22 19:16 | disposition short-term general hospital (02) | DRG 310 ==
LOC: ED 15:36 → ICU 16:49 → PCU 09-20 18:00
PROVIDERS: Admitting Provider Family Medicine; Emergency Provider Emergency Medicine; Visit Provider Internal Medicine
DX: I47.1 Supraventricular tachycardia (principal); K21.9 Gastro-esophageal reflux disease without esophagitis; K76.0 Fatty (change of) liver, not elsewhere classified; E66.9 Obesity, unspecified; Z68.38 Body mass index [BMI] 38.0-38.9, adult; D72.829 Elevated white blood cell count, unspecified; F43.9 Reaction to severe stress, unspecified
CPT/HCPCS: 71045; 71046; 71250; 76705; 80053; 80061; 83605; 83735; 84439; 84443; 84484; 85025; 86704; 86705; 86706; 86708; 86709; 86803; 87040; 87070; 87205; 87340; 87449; 87633; 93005; 93306; 94640; 97802; 99251; 99285; J7030; J7040; J7120; Q9957; A4216; C8929; G0463; J0153; J0696

== ENCOUNTER 2021-10-13 14:18 | Emergency (ER) | payer BC, SELFPAY ==
[2021-10-13 14:19] VITALS: BP 187/82; PULSE 91; RESP 16; TEMP 36.2; O2SAT 99; BMI 37.1
[2021-10-13 14:23] VITALS: BP 154/101; PULSE 91
--- NOTE | 2021-10-13 14:35 | EX.ED.DYSGE1 ---
HPI History of Present Illness Chief Complaint: Nausea/Vomiting Informant: patient Onset/Context/Timing Onset: Days Context: Gradual Onset Timing: Intermittent Current Severity: Mild Maximum Severity: Mild Narrative Narrative: 61-year-old male history of hypertension. Prior SVT for which he underwent ablation several years ago. Patient states he had Covid 2 and half weeks ago and is feeling much better. For the last 5 days he has had primarily nausea and dry heaves and vomiting in the mornings. He denies any other symptoms denies any abdominal pains any [place] nausea before it happens he just starts vomiting. He has been moving his bowels and peeing normally. He has had a chronic cough. Prior similar symptoms: No Recent Illness/Hospitalization: No [facility] Medical History (Updated 10/13/21 @ 14:47 by Vandana Medrano) Hypertension Home Medications lisinopril 10 mg PO DAILY 10/13/21 [History Last Taken Unknown] Allergy/AdvReac Type Severity Reaction Status Date / Time No Known Allergies Allergy Verified 10/13/21 14:22 Social History Smoking Status: Never smoker ROS ROS ED ROS Narrative Nausea and vomiting. Review of Systems ROS Unobtainable: Denies due to encephalopathy Constitutional Constitutional ED: Denies fever(s) Eyes Eyes: Denies change in vision ENT ENT ED: Denies ear pain or rhinorrhea Cardiovascular Cardiovascular: Denies chest pain or palpitations Respiratory/Chest Respiratory/Chest: Reports cough; Denies dyspnea Gastrointestinal Gastrointestinal: Reports nausea and vomiting; Denies abdominal pain or diarrhea Genitourinary Genitourinary ED: Denies dysuria Musculoskeletal Musculoskeletal: Denies myalgias Integumentary Denies rash Neurologic Neurologic: Denies headache(s) Psychiatric Psychiatric: Denies depression Endocrine Endocrinology: Denies polyuria Allergic/Immunologic Allergic/Immunologic ED: Denies urticaria EXAM Physical Exam Narrative Exam Narrative: Middle-age male no acute distress vital signs stable and afebrile. Pulse ox 9% on room air no hypoxia. H EENT exam unremarkable. Neck nontender no JVD. Lungs clear to auscultation bilaterally. Heart regular rate and rhythm rate about 90 no murmur. Abdomen soft nontender. Moving all 4 extremities. Calves are nontender without edema. Back nontender. Neurologically is awake alert with no focal motor deficits. Const Vital Signs: 10/13/21 14:19 10/13/21 14:23 Temperature 97.2 F L Temperature Source Temporal Pulse Rate 91 91 Respiratory Rate 16 Blood Pressure 187/82 H 154/101 H Blood Pressure Mean 117 118 Pulse Ox 99 Oxygen Delivery Method Room Air Positive well nourished, well developed and obese; Negative for cachectic or contractures General Appearance ED: well developed and NAD; Negative for cachectic, contractures, cyanotic, diaphoretic or pallor Nutritional Appearance: obese; Negative for cachectic HEENT Reports moist mucous membranes Negative for trauma or tenderness Eyes PERRL and EOMs intact bilaterally Neck no lymphadenopathy, supple and no JVD General: Negative for tenderness Chest Wall inspection of chest normal and palpation of chest normal Resp normal respiratory effort and clear to auscultation bilaterally Effort and Inspection: Negative for pain with movement Auscultation: Negative for rales, rhonchi or wheezes Cardio regular rate, regular rhythm, S1 normal heart sound, S2 normal heart sound and no murmurs GI normal to inspection, nondistended, normoactive bowel sounds, non-tender, non-distended and no masses Inspection: Negative for abdominal distention Auscultation: normoactive bowel sounds Palpation: soft; Negative for tender, guarding or rebound tenderness present Back/Spine no CVA tenderness General Back: Negative for CVA tenderness Cervical Spine: Negative for cervical spine tenderness Thoracic Spine / Upper Back: Negative for thoracic spinal tenderness or paraspinal muscle tenderness Lumbar Spine / Lower Back: Negative for lumbar spinal tenderness Extremity normal to inspection General Extremety ED: Negative for edema or tenderness General Extremity: Negative for edema Neuro oriented x3 Sensorium / Orientation: alert; Negative for orientation impaired, lethargic or stuporous Motor Exam: strength 5/5 throughout Psych mental status grossly normal Attitude: No agitated Mood & Affect: Negative for depressed, anxious or tearful Skin no rashes or lesions noted and no wounds General Skin Exam: Negative for jaundice or pallor MDM MDM MDM Narrative Medical decision making narrative: 61-year-old male recent Covid having intermittent nausea and vomiting primarily in the morning. Exam benign. Repeat exam patient is doing well at 3:53 PM to be discharged home. Outpatient follow-up. Zofran as needed for nausea. Lab Data Attestation: I reviewed the patient's lab results. Lab results narrative: CBC shows a white count of 5. Hemoglobin 17.1. Hematocrit 51. Normal platelets. CMP shows shows a gap of 5. Normal BUN and creatinine of 0.9. Liver enzymes are unremarkable total bilirubin is 1.1 AST of 69 and ALT of 95. Labs: Laboratory Results - last 24 hr 10/13/21 10/13/21 14:45 14:45 WBC 5.4 RBC 5.71 Hgb 17.1 H Hct 51.3 MCV 89.8 MCH 29.9 MCHC 33.3 RDW Std Deviation 41.9 RDW Coeff of Kristen 12.7 Plt Count 203 MPV 9.6 Immature Gran % (Auto) 0.200 Neut % (Auto) 53.6 Lymph % (Auto) 32.5 [place] % (Auto) 13.1 H Eos % (Auto) 0.2 Baso % (Auto) 0.4 Absolute Neuts (auto) 2.9 Absolute Lymphs (auto) 1.77 Nucleated RBC % 0 Sodium 139 Potassium 4.9 Chloride 107 Carbon Dioxide 27.0 Anion Gap 5 BUN 17 Creatinine 0.90 Estim Creat Clear Calc 97.00 Est GFR (MDRD) Af Amer 111 Est GFR (MDRD) Non-Af 91 BUN/Creatinine Ratio 18.8 Glucose 100 Calcium 9.0 Total Bilirubin 1.10 H AST 69 H ALT 95 H Alkaline Phosphatase 79 Total Protein 7.9 Albumin 3.7 Globulin 4.2 Albumin/Globulin Ratio 0.9 Discharge Plan Triage Chief Complaint: Nausea/Vomiting ED Provider: Greg Beltre Dx/Rx/DC Orders Prescriptions: No Action lisinopril 10 mg tablet 10 mg PO DAILY RF: 0 Primary Care Provider: Care Physician,Yari Primary
[2021-10-13 14:53] LABS: Absolute Lymphocyte Count 1.77 X10^3/uL (0.83-4.51); Absolute Neutrophil Count 2.9 X10^3/uL (2.0-7.7); Basophil# 0.02 X10^3/uL; Basophil% 0.4 % (0-1); Eosinophil# 0.01 X10^3/uL; Eosinophils% 0.2 % (0-5); Hematocrit 51.3 % (40-54); Hemoglobin 17.1 g/dL (13.0-16.5); Lymphocyte # 1.77 X10^3/ul (0.83-4.51); Lymphocyte % 32.5 % (19-41); Mean Corp Hgb Conc 33.3 g/dL (32-36); Mean Corpuscular Hgb 29.9 pg (27.0-32.0); Mean Corpuscular Volume 89.8 fL (80-94); Mean Platelet Vol. 9.6 fl (6.2-12.0); Monocyte# 0.71 X10^3/uL; Monocyte% 13.1 % (0-10); NRBC Flagged by Analyzer 0 % (0-5); Neutrophil # 2.92 X10^3/uL (2.7-7.7); Neutrophil % 53.6 % (47-70); Platelet Count 203 K/mm3 (150-450); RBC Distribution Width CV 12.7 % (11.6-14.6); RBC Distribution Width SD 41.9 fl (35.1-43.9); Red Blood Count 5.71 M/mm3 (4.6-6.2); White Blood Count 5.4 K/mm3 (4.4-11.0)
[2021-10-13 15:49] LABS: ALB/GLOB Ratio 0.9 RATIO (0.9-2.4); AST(SGOT) 69 U/L (15-37); Alanine Aminotransfer ALT/SGPT 95 U/L (16-61); Albumin, Serum 3.7 g/dL (3.2-5.0); Alkaline Phosphatase 79 U/L (45-117); Anion Gap 5 (5-15); BUN 17 mg/dL (7-18); BUN/Creat Ratio 18.8 RATIO (10-20); Chloride 107 mmol/L (98-107); EST Glomerular Filtration Rate 91 mL/min (>60); Est Glom Filt Rate - Afr Amer 111 mL/min (>60); Globulin 4.2 g/dL (2.2-4.2); Glucose 100 mg/dL (74-106); Potassium 4.9 mmol/L (3.5-5.1); Protein, Total 7.9 g/dL (6.4-8.2); Sodium Level 139 mmol/L (136-145)
[2021-10-13 15:54] VITALS: BP 149/95; PULSE 85; RESP 16; O2SAT 98
== END 2021-10-13 15:58 | disposition home or self-care (01) ==
PROVIDERS: Emergency Provider Emergency Medicine; Visit Provider Emergency Medicine
DX: R11.2 Nausea with vomiting, unspecified (principal); I10 Essential (primary) hypertension; Z79.899 Other long term (current) drug therapy; E66.9 Obesity, unspecified; Z68.37 Body mass index [BMI] 37.0-37.9, adult
CPT/HCPCS: 80053; 85025; 99282; A4216